=== PATIENT | male | born 1945 | race Caucasian/White ===

== ENCOUNTER → 2016-07-03 | Outpatient (CLI) | payer MEDICARE, BC | LOC: RAD 09:52 | PROVIDERS: ATTEND Urology | DX: C64.1 Malignant neoplasm of right kidney, except renal pelvis (principal); Z90.5 Acquired absence of kidney | CPT/HCPCS: 76770 ==

== ENCOUNTER → 2017-03-20 | Day surgery (SDC) | payer MEDICARE, BC ==
--- NOTE | 2017-03-20 17:16 | RADIOLOGY REPORT (SQ) ---
EXAM DESCRIPTION: CT LT UPPER EXTREMITY WITH COMPLETED DATE/TIME: 03/20/2017 2:45 pm REASON FOR STUDY: PAIN IN L SHOULDER M25.512 PAIN IN LEFT SHOULDER COMPARISON: None. TECHNIQUE: Axial imaging performed through the leftshoulder with reformatted oblique coronal and obl ique sagittal imaging windowed for bone and soft tissues. All CT scanners at this facility use dose modulation, iterative reconstruction, and/or weight based d osing when appropriate to reduce radiation dose to as low as reasonably achievable (ALARA). [facility]: Dose Right [facility]: CareDose [facility]: Dose Right [facility]: Teradose 4D [facility]: Smart Sarta RADIATION DOSE: Up-to-date CT equipment and radiation dose reduction techniques were employed. CTDIv ol: 23.1 mGy. DLP: 552 mGy-cm. mGy. LIMITATIONS: None. FINDINGS: SOFT TISSUES: No left axillary adenopathy. No supraclavicular adenopathy. BONY ARCHITECTURE: No lytic or blastic lesions. Normal bone density for age. No fractures GLENOHUMERAL JOINT: Mild chondromalacia. No subluxation. No bulky bony spurring ACROMION AND AC JOINT: Type 2 acromion with mild to moderate acromioclavicular joint bony spurring. ROTATOR CUFF: Intact. No leakage of contrast into the subacromial/ subdeltoid bursa. Grossly normal thickness GLENOID, LABRUM AND BICEPS: Intact OTHER: There is advanced bilateral foraminal stenosis at the C3-4, C4-5, C5-6, and C6-7 levels from f acet and uncovertebral hypertrophy. IMPRESSION: Cervical neural foraminal stenosis. Mild to moderate acromioclavicular joint bony spurring Mild glenohumeral joint chondromalacia. TECHNICAL DOCUMENTATION: JOB ID: [id number] Quality ID # 436: Final reports with documentation of one or more dose reduction techniques (e.g., Au tomated exposure control, adjustment of the mA and/or kV according to patient size, use of iterative reconstruction technique) 2010 [employer]- All Rights Reserved
--- NOTE | 2017-03-20 17:18 | RADIOLOGY REPORT (SQ) ---
EXAM DESCRIPTION: ARTHRO SHOULDER INJECTION; FLUORO/NEEDLE PLACEMENT COMPLETED DATE/TIME: 03/20/2017 2:46 pm REASON FOR STUDY: PAIN IN L SHOULDER M25.512 PAIN IN LEFT SHOULDER COMPARISON: None. FLUOROSCOPY TIME: 26 seconds 2 digital radiographic images saved to PACS. LIMITATIONS: None. PROCEDURE: Procedure, risks, benefits and alternatives explained to patient who then gave written co nsent. The posterior left shoulder was marked and a time out was called for correct procedure verific ation. Posterior entry site marked using fluoroscopic guidance. Shoulder prepped and draped using s terile technique. Local anesthesia achieved using 6 mL of 1% lidocaine injection. 22 gauge spinal n eedle introduced into the joint space under direct fluoroscopic visualization. Non-ionic contrast ins tilled to confirm intra-articular position. Dilute gadolinium solution then injected. Needle removed and entry site covered with sterile bandage. No immediate complications noted. TECHNIQUE: Digital images acquired during fluoroscopy and stored on PACS. Patient immediately take n to the MR suite for additional imaging. INJECTION LOCATION: Left posterior glenohumeral joint CONTRAST TYPE AND AMOUNT: 1 mL of Isovue 300 was injected to confirm intra-articular needle placement . This was followed with 10 mL of dilute Isovue-[address] shoulder arthrogram. IMPRESSION: SUCCESSFUL NEEDLE PLACEMENT AND INJECTION FOR LEFT SHOULDER MR ARTHROGRAM USING POSTERIO R APPROACH. COMMENT: Quality ID 145: Final reports for procedures using fluoroscopy that document radiation exp osure indices, or exposure time and number of fluorographic images (if radiation exposure indices are not available) TECHNICAL DOCUMENTATION: JOB ID: [id number] [employer]- All Rights Reserved
== END ==
LOC: RAD 13:53
PROVIDERS: ATTEND Orthopaedic Surgery
PROC: BP09ZZZ Plain Radiography of Left Shoulder (ICD-10-PCS; principal; 2017-03-20)
DX: M25.512 Pain in left shoulder (principal)
CPT/HCPCS: 23350; 77002

== ENCOUNTER → 2017-05-07 | Outpatient (CLI) | payer MEDICARE, BC ==
--- NOTE | 2017-05-07 14:28 | RADIOLOGY REPORT (SQ) ---
EXAM DESCRIPTION: CT CERVICAL SPINE WITHOUT COMPLETED DATE/TIME: 05/07/2017 2:11 pm REASON FOR STUDY: M54.2 CERVICALGIA M54.2 CERVICALGIA COMPARISON: None. TECHNIQUE: Axial images acquired through the cervical spine without intravenous contrast. Images re viewed with lung, soft tissue and bone windows. Reconstructed coronal and sagittal MPR images review ed. Images stored on PACS. All CT scanners at this facility use dose modulation, iterative reconstruction, and/or weight based d osing when appropriate to reduce radiation dose to as low as reasonably achievable (ALARA). [facility]: Dose Right [facility]: CareDose [facility]: Dose Right [facility]: Teradose 4D [facility]: Smart mydala RADIATION DOSE: CT Rad equipment meets quality standard of care and radiation dose reduction techniq ues were employed. CTDIvol: 24.2 mGy. DLP: 620 mGy-cm. mGy. LIMITATIONS: None. FINDINGS: ALIGNMENT: Anatomic. MINERALIZATION: Normal. VERTEBRAL BODIES: No fractures or dislocation. DISCS: Disc spaces are fairly well maintained. There are anterior osteophytes from C3 to C5. FACETS, LATERAL MASSES, POSTERIOR ELEMENTS: Multilevel hypertrophic facet changes are present. These are perhaps slightly more advanced on the left than the right. There is narrowing of multiple neura l foramina bilaterally. HARDWARE: None in the spine. VISUALIZED RIBS: No fractures. LUNG APICES AND SOFT TISSUES: No significant or acute findings. OTHER: No other significant finding. IMPRESSION: Degenerative disc disease. Spondylosis. Multilevel facet arthropathy with foraminal na rrowing bilaterally at multiple levels. TECHNICAL DOCUMENTATION: JOB ID: [id number] Quality ID # 436: Final reports with documentation of one or more dose reduction techniques (e.g., Au tomated exposure control, adjustment of the mA and/or kV according to patient size, use of iterative reconstruction technique) 2010 [employer]- All Rights Reserved
== END ==
LOC: RAD 14:00
PROVIDERS: ATTEND Physician Assistant
DX: M54.2 Cervicalgia (principal)
CPT/HCPCS: 72125

== ENCOUNTER → 2017-06-05 | Day surgery (SDC) | payer MEDICARE, BC ==
[~2017-06-05] MED LIST: LIDOCAINE 1% INJ-PF (10 MG/ML) 30 ML SDV ONE
[2017-06-05 08:51] LABS: PROTHROMBIN TIME 12.8 SEC (11.4-15.4)
[2017-06-05 08:52] LABS: PARTIAL THROMBOPLASTIN TIME 35.1 SEC (23.5-35.8)
--- NOTE | 2017-06-05 11:37 | RADIOLOGY REPORT (SQ) ---
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 FLUOROSCOPY TIME: 2.53 minutes. 9 images saved to PACS. TECHNIQUE: Fluoroscopic guided cervical myelogram. LIMITATIONS: None. PROCEDURE: After written consent and assessment were obtained, the patient was brought into the fluo roscopy room and placed prone on the table. The patient's lower back was prepped in a sterile fashio n and an entry site was selected under live fluoroscopic guidance. The entry site was anesthetized wi th 1% lidocaine. The spinal needle was advanced through the skin and into the thecal sac at the leve l of L3-L4. There was free flow of clear CSF at the time of puncture. Contrast was injected into th e thecal sac. Due to previous extensive surgery and metallic hardware, the appearance of the contras t column on fluoroscopic images was somewhat distorted. A cross-table lateral image was acquired wit h the needle in place and the appearance was suggestive of presence of contrast in the thecal sac. F ollowing the procedure the needle was removed and a sterile bandage was placed of the site. The shaheed ent was repositioned in 80 head down ankle to without contrast flow into the cervical region. There was no progression of contrast with this maneuver. CONTRAST: 11 mL Isovue-300. IMAGES ACQUIRED: 9 images. FINDINGS: See above discussion. IMPRESSION: CERVICAL MYELOGRAM PERFORMED FOR CT MYELOGRAPHY. SUBSEQUENT IMAGING DEMONSTRATED NO CON TRAST IN THE CERVICAL REGION. DUE TO THE SURGICAL CHANGES AND HARDWARE IN THE LUMBAR REGION, THE CON TRAST INJECTION HAD A DISTORTED APPEARANCE BUT APPEARED TO BE WITHIN THE THECAL SAC BUT PRESUMABLY WA S IN THE EPIDURAL SPACE INSTEAD. THE PATIENT WILL BE RESCHEDULED FOR REPEAT PROCEDURE. COMMENT: Patient medication list reviewed: Yes- Quality ID# [id number]:Eligible professional attests to doc umenting in the medical record they obtained, updated, or reviewed the patient's current medications. . Quality ID 145: Final reports for procedures using fluoroscopy that document radiation exposure michael pierce, or exposure time and number of fluorographic images (if radiation exposure indices are not avail able) TECHNICAL DOCUMENTATION: JOB ID: [id number] [employer]- All Rights Reserved
--- NOTE | 2017-06-05 11:40 | RADIOLOGY REPORT (SQ) ---
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 TECHNIQUE: Axial images acquired through the cervical spine following attempted cervical myelogram. Please refer to the separate report for discussion of the myelogram procedure. No contrast was pres ent in the thecal sac. Images reviewed with lung, soft tissue and bone windows. Reconstructed coron al and sagittal MPR images reviewed. Images stored on PACS. All CT scanners at this facility use dose modulation, iterative reconstruction, and/or weight based d osing when appropriate to reduce radiation dose to as low as reasonably achievable (ALARA). [facility]: Dose Right [facility]: CareDose [facility]: Dose Right [facility]: Teradose 4D [facility]: [employer] RADIATION DOSE: CT Rad equipment meets quality standard of care and radiation dose reduction techniq ues were employed. CTDIvol: 25.7 mGy. DLP: 653 mGy-cm. mGy. LIMITATIONS: None. FINDINGS: ALIGNMENT: Anatomic. MINERALIZATION: Normal. VERTEBRAL BODIES: No fractures or dislocation. DISCS: Multilevel disc space narrowing with osteophytes. Multilevel spinal stenosis and exit foramin al stenosis. FACETS, LATERAL MASSES, POSTERIOR ELEMENTS: Multilevel facet arthropathy. No fractures. No dislocat ion. No acute findings. HARDWARE: None in the spine. VISUALIZED RIBS: No fractures. LUNG APICES AND SOFT TISSUES: No significant or acute findings. OTHER: No other significant finding. IMPRESSION: MULTILEVEL CHRONIC DEGENERATIVE CHANGES. DUE TO TECHNICAL DIFFICULTIES DISCUSSED IN THE SEPARATE REPORT OF THE MYELOGRAM, THE MYELOGRAPHIC CONTRAST DID NOT FILL THE THECAL SAC AND PRESUMAB LY ENTER THE EPIDURAL SPACE INSTEAD. THE PATIENT WILL BE RESCHEDULED FOR REPEAT CERVICAL MYELOGRAM W ITH FOLLOW-UP CT. TECHNICAL DOCUMENTATION: JOB ID: [id number] Quality ID # 436: Final reports with documentation of one or more dose reduction techniques (e.g., Au tomated exposure control, adjustment of the mA and/or kV according to patient size, use of iterative reconstruction technique) 2010 [employer]- All Rights Reserved
[2017-06-05 11:56] VITALS: BP 159/86
== END ==
LOC: RAD 08:07
PROVIDERS: ATTEND Specialist
PROC: B01BYZZ Fluoroscopy of Spinal Cord using Other Contrast (ICD-10-PCS; principal; 2017-06-05)
DX: M62.81 Muscle weakness (generalized) (principal); M79.602 Pain in left arm; I10 Essential (primary) hypertension; Z79.01 Long term (current) use of anticoagulants; Z79.899 Other long term (current) drug therapy
CPT/HCPCS: 36415; 82947; 85610; 85730; J3490; 72126; 72240

== ENCOUNTER 2017-06-12 07:54 | Day surgery (SDC) | payer MEDICARE, BC ==
[2017-06-12] MEDS ORDERED: LIDOCAINE 1% INJ-PF (10 MG/ML) 30 ML SDV ONE (09:11)
[2017-06-12] MEDS ORDERED: ACETAMINOPHEN 325 MG TABLET ONE (12:36)
--- NOTE | 2017-06-12 12:39 | RADIOLOGY REPORT (SQ) ---
EXAM DESCRIPTION: CT CERVICAL SPINE WITH COMPLETED DATE/TIME: 06/12/2017 10:54 am REASON FOR STUDY: LEFT ARM WEAKNESS M62.81 MUSCLE WEAKNESS (GENERALIZED) COMPARISON: None. TECHNIQUE: After performing cervical myelogram, axial images were acquired through the cervical spin e without intravenous contrast. Images reviewed with lung, soft tissue and bone windows. Reconstruc tonia coronal and sagittal MPR images reviewed. Images stored on PACS. All CT scanners at this facility use dose modulation, iterative reconstruction, and/or weight based d osing when appropriate to reduce radiation dose to as low as reasonably achievable (ALARA). [facility]: Dose Right [facility]: CareDose [facility]: Dose Right [facility]: Teradose 4D [facility]: [employer] RADIATION DOSE: CT Rad equipment meets quality standard of care and radiation dose reduction techniq ues were employed. CTDIvol: 23.5 mGy. DLP: 532 mGy-cm. mGy. LIMITATIONS: None. FINDINGS: ALIGNMENT: Anatomic. MINERALIZATION: Normal. VERTEBRAL BODIES: No fractures or dislocation. DISCS: C1-C2: No significant spinal stenosis or exit foraminal stenosis. C2-C3: Minimal posterior disc and osteophyte. Moderate facet arthropathy, worse on the right. No si gnificant spinal stenosis. Mild to moderate right exit foraminal stenosis. C3-C4: Minimal posterior disc and osteophyte. Marked bilateral facet arthropathy. No significant sp inal stenosis. Moderate to severe bilateral exit foraminal stenosis. C4-C5: Mild posterior disc and osteophyte with right paracentral component. Marked facet arthropathy , worse on the right. Mild spinal stenosis and moderate bilateral exit foraminal stenosis. C5-C6: Mild posterior disc and osteophyte with small focal central component. Mild-moderate spinal s tenosis and borderline focal central impingement of the cord. Marked facet arthropathy. Moderate ex it foraminal stenosis. C6-C7: Mild posterior disc and osteophyte. Mild spinal stenosis. Moderate facet arthropathy with mo derate exit foraminal stenosis. C7-T1: No significant disc disease. Mild facet arthropathy. No significant spinal stenosis or exit foraminal stenosis. FACETS, LATERAL MASSES, POSTERIOR ELEMENTS: No fractures. No dislocation. No acute findings. VISUALIZED RIBS: No fractures. LUNG APICES AND SOFT TISSUES: No significant or acute findings. OTHER: No other significant finding. IMPRESSION: MULTILEVEL CHRONIC DEGENERATIVE CHANGES DESCRIBED. THE MOST PROMINENT FINDINGS ARE D UE PRIMARILY TO FACET ARTHROPATHY. COMMENT: Patient medication list reviewed: Yes- Quality ID# 130:Eligible professional attests to doc umenting in the medical record they obtained, updated, or reviewed the patient's current medications. TECHNICAL DOCUMENTATION: JOB ID: [id number] Quality ID # 436: Final reports with documentation of one or more dose reduction techniques (e.g., Au tomated exposure control, adjustment of the mA and/or kV according to patient size, use of iterative reconstruction technique) 2010 [employer]- All Rights Reserved
--- NOTE | 2017-06-12 12:43 | RADIOLOGY REPORT (SQ) ---
EXAM DESCRIPTION: MYELOGRAM CERVICAL COMPLETED DATE/TIME: 06/12/2017 10:45 am REASON FOR STUDY: LEFT ARM WEAKNESS M62.81 MUSCLE WEAKNESS (GENERALIZED) COMPARISON: None. FLUOROSCOPY TIME: 2 minutes 53 seconds. 18 images saved to PACS. TECHNIQUE: Fluoroscopic guided cervical myelogram. LIMITATIONS: None. PROCEDURE: After written consent and assessment were obtained, the patient was brought into the fluo roscopy room and placed prone on the table. The patient's lower back was prepped in a sterile fashio n and an entry site was selected under live fluoroscopic guidance. The entry site was anesthetized wi th 1% lidocaine. The spinal needle was advanced through the skin and into the thecal sac at the leve l of L4-L5. Contrast was injected into the thecal sac. Following the procedure the needle was remov ed and a sterile bandage was placed of the site. The patient was repositioned to allow movement of c ontrast by gravity to enter the cervical spine region. CONTRAST: 12 mL Isovue 300 M. IMAGES ACQUIRED: 18 images FINDINGS: Contrast is present in the thecal sac. IMPRESSION: CERVICAL MYELOGRAM PERFORMED FOR CT MYELOGRAPHY. PLEASE REFER TO THE REPORT OF THE CT M YELOGRAM FOR DETAILED DIAGNOSTIC EVALUATION. COMMENT: Patient medication list reviewed: Yes- Quality ID# [id number]:Eligible professional attests to doc umenting in the medical record they obtained, updated, or reviewed the patient's current medications. . Quality ID 145: Final reports for procedures using fluoroscopy that document radiation exposure michael pierce, or exposure time and number of fluorographic images (if radiation exposure indices are not avail able) TECHNICAL DOCUMENTATION: JOB ID: [id number] [employer]- All Rights Reserved
[2017-06-12 19:08] VITALS: BP 139/89
== END 2017-06-12 14:15 | disposition home or self-care (01) ==
LOC: RAD 07:54
PROVIDERS: ATTEND Specialist
PROC: B01BYZZ Fluoroscopy of Spinal Cord using Other Contrast (ICD-10-PCS; principal; 2017-06-12)
DX: M54.12 Radiculopathy, cervical region (principal); M62.81 Muscle weakness (generalized); I10 Essential (primary) hypertension
CPT/HCPCS: 82962; 72240; 72126; A9270; J3490

== ENCOUNTER 2017-07-10 09:21 | Emergency (ER) | payer MEDICARE, BC ==
[2017-07-10] MEDS ORDERED: NORMAL SALINE 1000 ML 1,000 ML IV ONE (09:31)
[2017-07-10 09:51] LABS: ABSOLUTE EOSINOPHILS # (AUTO) 0.2 10^3/uL (0.0-0.6); ABSOLUTE LYMPHOCYTES (AUTO) 1.2 10^3/uL (0.5-4.7); ABSOLUTE MONOCYTES (AUTO) 0.6 10^3/uL (0.1-1.4); ABSOLUTE NEUT (AUTO) 6.1 10^3/uL (1.7-8.2); BASOPHILS % (AUTO) 0.3 % (0-2); EOSINOPHILS % (AUTO) 2.7 % (0-6); LYMPHOCYTES % (AUTO) 14.6 % (13-45); MEAN CORPUSCULAR HEMOGLOBIN 31.4 pg (27.0-33.4); MEAN CORPUSCULAR VOLUME 92 fl (80-97); MONOCYTES % (AUTO) 6.9 % (3-13); PLATELET COUNT 171 10^3/uL (150-450); RED BLOOD COUNT 4.13 10^6/uL (4.35-5.55); RED CELL DISTRIBUTION WIDTH 13.5 % (11.5-14.0); SEGMENTED NEUTROPHILS % (AUTO) 75.5 % (42-78); TOTAL CELLS COUNTED % (AUTO) 100 %; WHITE BLOOD COUNT 8.1 10^3/uL (4.0-10.5)
[2017-07-10 10:06] LABS: INTERNATIONAL RATION (INR) 0.96; PROTHROMBIN TIME 13.5 SEC (11.4-15.4)
[2017-07-10 10:10] LABS: ALANINE AMINOTRANSFERASE 44 U/L (21-72); ALBUMIN 3.8 g/dL (3.5-5.0); ALKALINE PHOSPHATASE 53 U/L (38-126); ANION GAP 14 (5-19); ASPARTATE AMINO TRANSFERASE 33 U/L (17-59); BILIRUBIN,DIRECT 0.2 mg/dL (0.0-0.4); BILIRUBIN,TOTAL 0.4 mg/dL (0.2-1.3); BLOOD UREA NITROGEN 53 mg/dL (7-20); CALCIUM 8.7 mg/dL (8.4-10.2); CARBON DIOXIDE 24 mmol/L (22-30); CHLORIDE 104 mmol/L (98-107); GLUCOSE 227 mg/dL (75-110); POTASSIUM 3.4 mmol/L (3.6-5.0); SODIUM 141.8 mmol/L (137-145); TOTAL PROTEIN 6.2 g/dL (6.3-8.2)
--- NOTE | 2017-07-10 10:16 | ER Document Report ---
ED General - General Chief Complaint: General Weakness Stated Complaint: WEAKNESS Time Seen by Provider: 07/10/17 09:30 Notes: 72-year-old male presents with an episode of dizziness and hypotension. He was due for to have a dental procedure so he took his antibiotics sat on the commode got very dizzy and sweaty and felt generally bad. He denies chest pain belly pain back pain leg pain fever chills itchiness wheezing or shortness of breath. No history of anaphylaxis. History of stented aortic aneurysm in the abdomen. He was brought in by EMS. Initial blood pressure was in the 60s. He did not have diarrhea. They did not note bradycardia and his blood sugar was slightly elevated. TRAVEL OUTSIDE OF THE [place] IN LAST 30 DAYS: No - Related Data Allergies/Adverse Reactions: No Known Allergies Allergy (Verified 06/08/17 15:34) Past Medical History - Social History Smoking Status: Unknown if Ever Smoked Family History: CAD - Father, CVA - Mother - Past Medical History Cardiac Medical History: Reports: Hx Coronary Artery Disease, Hx Hypercholesterolemia, Hx Hypertension, Hx Peripheral Vascular Disease - Abdominal aortic aneurysm status post repair Denies: Hx Heart Attack Pulmonary Medical History: Reports: Hx Pneumonia Denies: Hx Asthma, Hx Bronchitis, Hx COPD Neurological Medical History: Denies: Hx Cerebrovascular Accident, Hx Seizures Endocrine Medical History: Reports: Hx Diabetes Mellitus Type 2 Renal/ Medical History: Reports: Hx Benign Prostatic Hyperplasia Malignancy Medical History: Reports Hx Prostate Cancer GI Medical History: Reports: Hx Colonoscopy. Denies: Hx Hepatitis, Hx Hiatal Hernia, Hx Ulcer Musculoskeltal Medical History: Reports Hx Arthritis - GENERALIZED Infectious Medical History: Denies: Hx Hepatitis Past Surgical History: Reports: Hx Kidney (Renal Surgery) - Right Nephrectomy, Hx Orthopedic Surgery - Back surgery Hip surgery, Hx Vascular Surgery - Endovascular sleeve for abdominal aortic aneurysm. Denies: Hx Open Heart Surgery, Hx Pacemaker - Immunizations Hx Diphtheria, Pertussis, Tetanus Vaccination: Yes Review of Systems - Review of Systems Notes: REVIEW OF SYSTEMS GEN: Dizziness and malaise ENT: Denies sore throat, nasal discharge, ear pain EYES: Denies blurry vision, eye pain, discharge CV: Denies chest pain, palpitations, edema RESP: Denies cough, shortness of breath, wheezing GI: Denies abdominal pain, nausea, vomiting, diarrhea MSK: Denies joint pain/swelling, edema, SKIN: Denies rash, skin lesions LYMPH: Denies swollen glands/lymph nodes NEURO: Denies headache, focal weakness or numbness, dizziness PSYCH: Denies depression, suicidal or homicidal ideation PHYSICAL EXAMINATION General: N a pale Head: Atraumatic, normocephalic ENT: Mouth normal, oropharynx moist, no exudates or tonsillar enlargement Eyes: Conjunctiva normal, pupils equal, lids normal Neck: No JVD, supple, no guarding CVS: Normal rate, regular rhythm, no murmurs Resp: No resp distress, equal and normal breath sounds bilaterally GI: Nondistended, soft, no tenderness to palpation, no rebound or guarding Ext: No deformities, no edema, normal range of motion in upper and lower ext Back: No CVA or midline TTP Skin: No rash, warm Lymphatic: No lymphadeopathy noted Neuro: Awake, alert. Face symmetric. GCS 15. Course - Re-evaluation Re-evalutation: 07/10/17 10:14 72-year-old male with history of repaired abdominal aortic aneurysm and diabetes presents with episode of hypertension and clamminess on the commode. Differential includes anaphylaxis although there is no other findings consistent with anaphylaxis on his exam, leaking aortic aneurysm although he has no pain, sepsis although I do not see a source on exam, dehydration or vagal. Sepsis protocol initiated. Bedside FAST exam is negative. Mild aortic dilatation on aortic scan although stent is present so this is unclear. Patient was given IV fluids and his pressure increased to the 110s. His baseline is in the 120s. Spoke with patient's family. Reassessed at 10:15 AM. Pressure still in the 110s and patient feels much better asking for a smith egg and cheese biscuit. His lactic is elevated at 3 but he has no fever so I will not initiate antibiotics at this time. His EKG is normal and his troponin is cooking. I have ordered a CT of his aorta to ensure there is no subtle leaking or Endo leaking. 07/10/17 10:[address] does not show hematoma. This combined with a fast I think adequately ruled out leaking. I would not expect endoleak to cause hypotension. Patient will be hydrated likely will be repeated he will be admitted. Discussed with hospitalist. Urine is still pending. - Laboratory Result Diagrams: 07/10/17 09:35 07/10/17 09:35 Laboratory results interpreted by me: 07/10/17 07/10/17 07/10/17 09:35 09:35 09:35 RBC 4.13 L Hgb 13.0 L Potassium 3.4 L BUN 53 H Creatinine 2.93 H Est GFR ( Amer) 26 L Est GFR (Non-Af Amer) 21 L Glucose 227 H Lactic Acid 3.1 H Total Protein 6.2 L Procedures - Ultrasound/Bedside Ultrasound/Bedside Time completed: 10:20 Notes: 07/10/17 10:51 Ultrasound performed in multiple planes of the aorta. There is slight dilation of the aorta. There is no free fluid surrounding the aorta. There is pulsatile flow within the aorta. Ultrasound performed: Fast. No free fluid in the right upper quadrant left upper quadrant or suprapubic region. Critical Care Note - Critical Care Note Total time excluding time spent on procedures (mins): 40 Comments: The above patient is critically ill. Not including procedures, but including direct re-evaluations, speaking with patient and/or consultants, interpreting results, and documenting, I spent the total amount of minute listed listed above on critical care time Discharge - Discharge Clinical Impression: Dehydration Hypotension Qualifiers: Hypotension type: other hypotension type Qualified Code(s): I95.89 - Other hypotension Condition: Fair Disposition: ADMITTED INPATIENT Admitting Provider: Hospitalist Unit Admitted: IMCU Referrals: ARLENE CHAVEZ MD [Primary Care Provider] - Follow up as needed
[2017-07-10] MEDS ORDERED: ACETAMINOPHEN 325 MG TABLET PO PRN (10:52)
[2017-07-10] MEDS ORDERED: ONDANSETRON HCL INJ/PF 4 MG/2 ML SDV IV PRN (10:52)
[2017-07-10] MEDS ORDERED: NORMAL SALINE 1000 ML 1,000 ML IV PRN (10:52)
--- NOTE | 2017-07-10 11:11 | RADIOLOGY REPORT (SQ) ---
EXAM DESCRIPTION: CT ABD/PELVIS NO ORAL OR IV COMPLETED DATE/TIME: 07/10/2017 10:38 am REASON FOR STUDY: r.o retroperitoneal hematoma (AAA, can't have cont COMPARISON: September 2014 TECHNIQUE: CT scan of the abdomen and pelvis performed without intravenous or oral contrast. Images reviewed with lung, soft tissue, and bone windows. Reconstructed coronal and sagittal MPR images revi ewed. All images stored on PACS. All CT scanners at this facility use dose modulation, iterative reconstruction, and/or weight based d osing when appropriate to reduce radiation dose to as low as reasonably achievable (ALARA). [facility]: Dose Right [facility]: CareDose [facility]: Dose Right [facility]: Teradose 4D [facility]: EpiVax RADIATION DOSE: CT Rad equipment meets quality standard of care and radiation dose reduction techniq ues were employed. CTDIvol: 16.3 mGy. DLP: 956 mGy-cm.mGy. LIMITATIONS: Study is limited due to artifact related to orthopedic hardware in the lumbar spine and a right hip prosthesis. FINDINGS: LOWER CHEST: There is some mild thickening of the pericardium suggesting a small pericardi al effusion. No nodules or infiltrates. NON-CONTRASTED LIVER, SPLEEN, ADRENALS: Evaluation limited by lack of IV contrast. No identified sign ificant masses. PANCREAS: No masses. No peripancreatic inflammatory changes. GALLBLADDER: No identified stones by CT criteria. No inflammatory changes to suggest cholecystitis. RIGHT KIDNEY AND URETER: Status post right nephrectomy. LEFT KIDNEY AND URETER: No suspicious masses. Assessment limited by lack of IV contrast. No signifi cant calcifications. No hydronephrosis or hydroureter. AORTA AND RETROPERITONEUM: Again the patient is status post endovascular repair of an abdominal aorti c and bilateral common iliac artery aneurysms. There is increased diameter between the graft and wal l of the tribe aneurysm at the level of the mid abdominal aorta measuring 14.5 mm on the current gabby dy and 5.4 mm on the previous study and the possibility of an endovascular leak should be considered. This is best seen on image number 49 of series 3. No retroperitoneal masses or adenopathy. BOWEL AND PERITONEAL CAVITY: No obvious masses or inflammatory changes. No free fluid. APPENDIX: Normal. PELVIS, BLADDER, AND ABDOMINAL WALL:No abnormal masses. No free fluid. Bladder normal. BONES: Degenerative and postsurgical changes are again identified in the lumbar spine OTHER: No other significant finding. IMPRESSION: The patient is status post endovascular repair of an abdominal aortic and bilateral comm on iliac artery aneurysms. There is increased diameter between the graft and wall of the tribe abdo paul aortic aneurysm at the level of the mid abdominal aorta as noted above. The possibility of an endovascular leak should be considered. No retroperitoneal bleed is identified. Other findings as n oted above COMMENT: Quality ID # [id number]: Final reports with documentation of one or more dose reduction techniques (e.g., Automated exposure control, adjustment of the mA and/or kV according to patient size, use of iterative reconstruction technique) TECHNICAL DOCUMENTATION: JOB ID: [id number] [employer]- All Rights Reserved
--- NOTE | 2017-07-10 11:36 | RADIOLOGY REPORT (SQ) ---
EXAM DESCRIPTION: CHEST SINGLE VIEW COMPLETED DATE/TIME: 07/10/2017 10:52 am REASON FOR STUDY: hypotension r/o PNA COMPARISON: 04/04/2015. EXAM PARAMETERS: NUMBER OF VIEWS: One view. TECHNIQUE: Single frontal radiographic view of the chest acquired. RADIATION DOSE: NA LIMITATIONS: None. FINDINGS: LUNGS AND PLEURA: No opacities, masses or pneumothorax. No pleural effusion. MEDIASTINUM AND HILAR STRUCTURES: No masses. Contour normal. HEART AND VASCULAR STRUCTURES: Heart normal in size. Normal vasculature. BONES: Old healed left rib fractures. Dorsal spondylosis. Degenerative changes AC joints. HARDWARE: None in the chest. OTHER: Chest leads in place. Nasal oxygen tubing over lower left chest. Radiopaque line overlying t he left axilla. Possibility of a subclavian venous access line not excluded. IMPRESSION: No acute disease. TECHNICAL DOCUMENTATION: JOB ID: [id number] SC-69 [id number] [employer]- All Rights Reserved
[2017-07-10 11:58] LABS: VENOUS BLOOD BASE EXCESS -3.3 mmol/L; VENOUS BLOOD HCO3 23.3 mmol/L (20-32); VENOUS BLOOD PCO2 47.9 mmHg (35-63); VENOUS BLOOD PH 7.31 (7.30-7.42)
--- NOTE | 2017-07-10 13:01 | EKG REPORT ---
SEVERITY:- ABNORMAL ECG - SINUS RHYTHM LEFT ANTERIOR FASCICULAR BLOCK CONSIDER ANTERIOR INFARCT : Confirmed by: Colin Mederos MD 10-Jul-2017 13:00:36
[2017-07-10] MEDS ORDERED: HEPARIN SOD (PORCINE) 5,000 UNIT/ML 1 ML SYRINGE SUBCUT SCH (14:00)
[2017-07-10 14:41] VITALS: BP 153/92
== END 2017-07-10 14:54 | disposition short-term general hospital (02) ==
LOC: ER 09:21 → EH 11:01 → UNDOADMIN 11:01 → ER 14:54
DX: I95.89 Other hypotension (principal); E86.0 Dehydration; R53.1 Weakness; R42 Dizziness and giddiness
CPT/HCPCS: 93005; 99291; 96360; 36415; 87040; 85025; 85610; 80053; 84484; 82803; 83605; 71045; 74176; 93010; J7030

== ENCOUNTER 2017-07-24 05:35 | Day surgery (SDC) | payer MEDICARE, BC ==
[2017-07-17 12:22] LABS: PARTIAL THROMBOPLASTIN TIME 32.4 SEC (23.5-35.8); PROTHROMBIN TIME 12.8 SEC (11.4-15.4)
[2017-07-17 12:23] LABS: HEMATOCRIT 37.5 % (37.9-51.0); HEMOGLOBIN 13.1 g/dL (13.5-17.0); MEAN CORPUSCULAR HEMOGLOBIN 31.7 pg (27.0-33.4); MEAN CORPUSCULAR HGB CONC 34.9 g/dL (32.0-36.0); MEAN CORPUSCULAR VOLUME 91 fl (80-97); PLATELET COUNT 232 10^3/uL (150-450); RED BLOOD COUNT 4.12 10^6/uL (4.35-5.55); RED CELL DISTRIBUTION WIDTH 13.4 % (11.5-14.0); WHITE BLOOD COUNT 8.9 10^3/uL (4.0-10.5)
[2017-07-17 12:49] LABS: ANION GAP 14 (5-19); BLOOD UREA NITROGEN 50 mg/dL (7-20); CALCIUM 9.6 mg/dL (8.4-10.2); CARBON DIOXIDE 26 mmol/L (22-30); CHLORIDE 102 mmol/L (98-107); GLUCOSE 95 mg/dL (75-110); SODIUM 142.4 mmol/L (137-145)
--- NOTE | 2017-07-17 22:47 | EKG REPORT ---
SEVERITY:- ABNORMAL ECG - SINUS RHYTHM LEFT ANTERIOR FASCICULAR BLOCK BORDERLINE R WAVE PROGRESSION, ANTERIOR LEADS : Confirmed by: Tai Love 17-Jul-2017 22:45:34
[~2017-07-24 05:35] MED LIST changes: +CEFAZOLIN 1 GM/D5W RTU 1 GM/50 ML RTUPB IV PRN; +LACTATED RINGERS 1000 ML IV PRN; +LIDOCAINE 0.5% INJ-PF (5 MG/ML) 50 ML SDV SUBCUT PRN; -LIDOCAINE 1% INJ-PF (10 MG/ML) 30 ML SDV ONE
[2017-07-24 06:28] LABS: POTASSIUM 3.9 mmol/L (3.6-5.0)
[2017-07-24] MEDS ORDERED: POVIDONE-IODINE 5% OPH PREP SOLN 30 ML ONE (06:32)
[2017-07-24] MEDS ORDERED: SODIUM BICARBONATE 8.4% INJ 50 MEQ/50 ML DISP.SYRIN ONE (06:32)
[2017-07-24] MEDS ORDERED: LIDOCAINE 1%/EPINEPHRINE INJ 20 ML VIAL ONE (06:32)
[2017-07-24] MEDS ORDERED: FENTANYL CITRATE INJ/PF 100 MCG/2 ML AMPUL ONE (06:51)
[2017-07-24] MEDS ORDERED: MIDAZOLAM 2 MG/2 ML INJ ONE (06:51)
[2017-07-24] MEDS ORDERED: LIDOCAINE 2% INJ-PF (20 MG/ML) 10 ML AMPUL ONE (06:51)
[2017-07-24] MEDS ORDERED: PROPOFOL INJ 200 MG/20 ML VIAL IV ONE (06:52)
[2017-07-24] MEDS ORDERED: PROMETHAZINE HCL INJ 25 MG/1 ML VIAL IV PRN (08:08)
[2017-07-24] MEDS ORDERED: DIPHENHYDRAMINE HCL 50 MG/ML VIAL IV PRN (08:08)
[2017-07-24] MEDS ORDERED: FENTANYL CITRATE INJ/PF 100 MCG/2 ML AMPUL IV PRN ×3 (08:08)
--- NOTE | 2017-07-24 09:06 | Operative Report ---
Operative Report DATE OF SURGERY: 07/24/17 PREOPERATIVE DIAGNOSIS: Basal cell carcinoma of the left nasolabial fold POSTOPERATIVE DIAGNOSIS: Same OPERATION: Excision of basal cell carcinoma of the left nasolabial fold with frozen section margin control and reconstruction with a cheek sliding advancement flap SURGEON: VALENTIN DENIS ANESTHESIA: LMAC TISSUE REMOVED OR ALTERED: Basal cell carcinoma COMPLICATIONS: None ESTIMATED BLOOD LOSS: Minimal PROCEDURE: Patient seen and was marked prior to being brought into the operating room. Patient was brought into the operating room and placed on the operating room table in a supine position. Patient was then prepped with a Betadine scrub and Betadine solution and draped in a sterile and aseptic manner. The area was then marked. 12 O'clock was marked towards the alar groove 3 O'clock was marked towards the cheek 6:00 was marked towards the inferior cheek 9:00 was marked towards the central lip The area was then anesthetized with 1% lidocaine with epinephrine and bicarbonate for its anesthetic and hemostatic effects. The area was then excised and marked at 12:00. The specimen was sent for frozen section. The results came back that the deep and lateral margins were free. We had considered a primary closure but this would go against the natural relaxed skin tension lines. A primary closure would be too tight and would have increased chance of dehiscence. This will leave more of a scar so we decided to use a cheek sliding advancement flap reconstruction which would camouflage the scar better and take tension off of the closure so that would be less chances of complications. This flap that we decided to use would camouflage the scar in the nasolabial fold and lip and would distort the lower eyelid the least amount. Patient has a very weak lower eyelid and closure options that would not affect the lower eyelid were important and the decision for the reconstruction. Then we went ahead and outlined the flap and anesthetized it. Then incised the flap and developed a flap maintaining the subdermal plexus. Then we undermined 360 to allow for plate like scarring and minimize trap door deformity. Throughout the case hemostasis was achieved with the bipolar. We then sutured the flap into its new position using 5-0 Vicryl for the subcutaneous and deep dermis. Skin was closed with a running subcuticular suture stitch using 4-0 PDS with knots being tied on the outside. And 4-0 PDS suture was used for support and placed in the central area of the incision. We then applied tincture benzoin and Steri-Strips followed by a light pressure dressing. Patient was then reversed from anesthesia and taken to the [facility] for recovery. The patient tolerated well. There were no complications. Lesion size was approximately 1.5 x 1 cm please see pathology for actual size. Portions of this note may be dictated using [employer] voice recognition software. Occasional variations and spelling and vocabulary could be possible and are unintentional. Additionally, there is a chance that some errors may not be caught or corrected. Please notify the author of any discrepancies noted or if any statements are unclear. Subjective: No complaints Objective: Vital signs stable afebrile No bleeding Dressing intact Assessment and plan: Doing well. Elevate the operative site. Resume medications. Take antibiotics for 1 day Follow-up Full instructions were given to the patient and family and they understand Portions of this note may be dictated using [employer] voice recognition software. Occasional variations and spelling and vocabulary could be possible and are unintentional. Additionally, there is a chance that some errors may not be caught or corrected. Please notify the offer of any discrepancies noted or if any statements are unclear.
--- NOTE | 2017-07-24 09:08 | PDOC DISCHARGE SUMMARY ---
Discharge Summary (SDC) - Discharge Final Diagnosis: Basal cell carcinoma of the left nasolabial fold Date of Surgery: 07/24/17 Condition: Good Treatment or Instructions: Leave the top dressing on for 2 days, then removed. Leave the steri-strip tapes on for 5 days, then removal. Then cleaning wound with peroxide and apply Neosporin/bacitracin 3 times per day. Antibiotics for 1 day, then discontinue. Elevate operative area to decrease swelling. Do not strain, or lift heavy objects. Call for excessive bleeding, increased temperature of 101, uncontrolled pain, or excessive nausea or vomiting. You may reach Dr. Hernandez through his office at [phone]. In the event of an emergency after hours, then contact Dr. Hernandez through [facility]. Return to the office for a postop check on . The time will be scheduled by the nursing staff of [facility] prior to discharge. Please give the patient a copy of their labs and EKG so they can bring this to their PMD. Thank you Portions of this note may be dictated using [employer] voice recognition software. Occasional variations and spelling and vocabulary could be possible and are unintentional. Additionally, there is a chance that some errors may not be caught or corrected. Please notify the offer of any discrepancies noted or if any statements are unclear. Referrals: ARLENE CHAVEZ MD [Primary Care Provider] - Discharge Diet: As Tolerated Report the Following to Your Physician Immediately: Unusual Bleeding - Keep head elevated. Limited activities. No bending or straining. Do not blow the nose. Do not do any excessive chewing the next several days.
[2017-07-24 10:44] VITALS: BP 162/81
== END 2017-07-24 10:35 | disposition home or self-care (01) ==
LOC: OROUT 05:35
PROVIDERS: ATTEND Plastic Surgery
PROC: 0HB1XZZ Excision of Face Skin, External Approach (ICD-10-PCS; principal; 2017-07-24 07:30)
DX: C44.319 Basal cell carcinoma of skin of other parts of face (principal); I10 Essential (primary) hypertension; M19.90 Unspecified osteoarthritis, unspecified site; Z79.01 Long term (current) use of anticoagulants; Z79.899 Other long term (current) drug therapy
CPT/HCPCS: 14040; 93005; 36415 ×2; 82947; 84132; 85027; 85610; 85730; 80048; 88305 ×2; 88331 ×2; 93010; J2250; J0690; J3010; J3490 ×4; J2704; 300

== ENCOUNTER 2017-10-28 03:58 | Emergency (ER) | payer MEDICARE, BC ==
[2017-10-28 04:08] VITALS: BP 163/84
--- NOTE | 2017-10-28 05:38 | RADIOLOGY REPORT (SQ) ---
EXAM DESCRIPTION: Right foot, 3 views CLINICAL HISTORY: fall right 2nd toe pain COMPARISON: None. FINDINGS: 3 views of the right foot. Leads are calcaneal spur. Normal osseous mineralization. Degenerative change of the first metacarpophalangeal joint. No definite acute fracture or dislocation. IMPRESSION: No acute fracture or dislocation
--- NOTE | 2017-10-28 05:39 | RADIOLOGY REPORT (SQ) ---
EXAM DESCRIPTION: CT of the head without contrast CLINICAL HISTORY: fall head lac COMPARISON: None available TECHNIQUE: Axial CT of the head obtained from the skull apex to the skull base without contrast. FINDINGS: No acute intracranial hemorrhage identified. No mass, mass effect, shift of the midline, abnormal extra-axial fluid collection or CT evidence of acute ischemic change identified. The ventricular system and sulcal spaces are mildly enlarged compatible with mild cerebral atrophy. Scattered areas of hypodensity throughout the supratentorial white matter are nonspecific and may be related to chronic small vessel ischemic change. The visualized paranasal sinuses and the mastoids are clear. No skull fracture identified. Visualized orbits and globes are unremarkable. Atherosclerotic calcification of the intracranial internal carotid arteries. DLP:1096.98 mGy-cm IMPRESSION: 1. No acute intracranial abnormality by CT criteria. This exam was performed according to our departmental dose-optimization program, which includes automated exposure control, adjustment of the mA and/or kV according to patient size and/or use of iterative reconstruction technique.
--- NOTE | 2017-10-28 06:11 | ER Document Report ---
ED General - General Chief Complaint: Head Injury without LOC Stated Complaint: FALL, HEAD INJURY Time Seen by Provider: 10/28/17 05:46 Mode of Arrival: Ambulatory Information source: Patient Notes: Patient is a 72-year-old male who presents to the ER today for head injury after letting the dog out tonight, then sitting on the side of the bed waiting on the dog to scratch at the door so that he could let him back again, falling asleep and falling out of the bed. Patient hit his head on the nightstand and injured his right second toe on something unknown. Patient is up-to-date on his tetanus, bleeding is controlled at this time with bandaging. Patient states that he did not lose consciousness after hitting his head. He denies any pain anywhere else. Patient is not on any blood thinners. TRAVEL OUTSIDE OF THE [place] IN LAST 30 DAYS: No - Related Data Allergies/Adverse Reactions: No Known Allergies Allergy (Verified 07/17/17 10:57) Past Medical History - General Information source: Patient - Social History Smoking Status: Unknown if Ever Smoked Family History: CAD - Father, CVA - Mother Patient has suicidal ideation: No Patient has homicidal ideation: No - Past Medical History Cardiac Medical History: Reports: Hx Coronary Artery Disease, Hx Hypercholesterolemia, Hx Hypertension, Hx Peripheral Vascular Disease - Abdominal aortic aneurysm status post repair Denies: Hx Heart Attack Pulmonary Medical History: Reports: Hx Pneumonia Denies: Hx Asthma, Hx Bronchitis, Hx COPD Neurological Medical History: Denies: Hx Cerebrovascular Accident, Hx Seizures Endocrine Medical History: Reports: Hx Diabetes Mellitus Type 2 Renal/ Medical History: Reports: Hx Benign Prostatic Hyperplasia. Denies: Hx Peritoneal Dialysis Malignancy Medical History: Reports Hx Prostate Cancer GI Medical History: Reports: Hx Colonoscopy. Denies: Hx Hepatitis, Hx Hiatal Hernia, Hx Ulcer Musculoskeltal Medical History: Reports Hx Arthritis - GENERALIZED Infectious Medical History: Denies: Hx Hepatitis Past Surgical History: Reports: Hx Kidney (Renal Surgery) - Right Nephrectomy, Hx Orthopedic Surgery - Back surgery Hip surgery, Hx Vascular Surgery - Endovascular sleeve for abdominal aortic aneurysm. Denies: Hx Open Heart Surgery, Hx Pacemaker - Immunizations Hx Diphtheria, Pertussis, Tetanus Vaccination: Yes Review of Systems - Review of Systems Constitutional: No symptoms reported EENT: No symptoms reported Cardiovascular: No symptoms reported Respiratory: No symptoms reported Gastrointestinal: No symptoms reported Genitourinary: No symptoms reported Male Genitourinary: No symptoms reported Musculoskeletal: See HPI Skin: See HPI Hematologic/Lymphatic: No symptoms reported Neurological/Psychological: See HPI Physical Exam - Vital signs Vitals: Temp Pulse Resp BP Pulse Ox 97.8 F 65 16 163/84 H 95 10/28/17 04:04 10/28/17 04:04 10/28/17 04:04 10/28/17 04:04 10/28/17 04:04 - Notes Notes: PHYSICAL EXAMINATION: GENERAL: Tired appearing, but in no acute distress. HEAD: 6 cm laceration to the right scalp, no active bleeding, normocephalic. EYES: Pupils equal round and reactive to light, extraocular movements intact, sclera anicteric, conjunctiva are normal. NECK: Normal range of motion, supple without lymphadenopathy LUNGS: CTAB and equal. No wheezes rales or rhonchi. HEART: Regular rate and rhythm without murmurs ABDOMEN: Soft, no tenderness. No guarding, no rebound BACK: no vertebral tenderness, normal ROM GI/: no CVA tenderness EXTREMITIES: Normal range of motion, no pitting edema. No cyanosis. NEUROLOGICAL: Cranial nerves grossly intact. Normal sensory/motor exams. Good and equal strength bilaterally, Kernig and Brudzinski's signs negative, Romberg' s test normal, normal heel to lund testing PSYCH: Normal mood, normal affect. SKIN: Warm, Dry, normal turgor, ecchymosis to the right dorsal second toe, tender to palpation, 1 cm laceration to the plantar surface of the right second toe, no active bleeding, tendon visible but intact Course - Re-evaluation Re-evalutation: 10/28/17 07:44 CT of the head, right foot x-ray negative for any acute pathology. Head laceration was repaired with lluvia, 4, total laceration was repaired with Steri-Strips, bandaged and patient placed on Keflex. Patient was up-to-date on his tetanus. Patient to follow-up with his primary care provider for recheck as he is a diabetic with neuropathy. advised to look at the foot daily. They are advised to be seen in 7 days to have lluvia removed. 10/28/17 19:45 - Vital Signs Vital signs: Temp Pulse Resp BP Pulse Ox 97.8 F 65 16 163/84 H 95 10/28/17 04:04 10/28/17 04:04 10/28/17 04:04 10/28/17 04:04 10/28/17 04:04 Procedures - Laceration/Wound Repair Right Toe 2nd digit Time completed: 07:00 Wound length (cm): 1 Wound's Depth, Shape: Linear Laceration pre-procedure: Shur-Clens applied Wound explored: Clean Irrigated w/ Saline (mLs): 40 Wound Repaired With: Steri-strips Post-procedure wound care: Sterile dressing applied Post-procedure NV exam normal: Yes Complications: No Right Head Time completed: 07:00 Wound length (cm): 6 Wound's Depth, Shape: Superficial, Linear - Are Laceration pre-procedure: Chloraprep applied - Gladys Wound explored: Clean - date of 01/19/1966 Wound Repaired With: Lluvia - 4 Post-procedure NV exam normal: Yes Complications: No Discharge - Discharge Clinical Impression: Scalp laceration Qualifiers: Encounter type: initial encounter Qualified Code(s): S01.01XA - Laceration without foreign body of scalp, initial encounter Head injury Qualifiers: Encounter type: initial encounter Qualified Code(s): S09.90XA - Unspecified injury of head, initial encounter Injury of right toe Qualifiers: Encounter type: initial encounter Qualified Code(s): S99.921A - Unspecified injury of right foot, initial encounter Toe laceration Qualifiers: Encounter type: initial encounter Toe: lesser toe Damage to nail status: without damage Foreign body presence: without foreign body Laterality: right Qualified Code(s): S91.114A - Laceration without foreign body of right lesser toe(s) without damage to nail, initial encounter Condition: Stable Disposition: HOME, SELF-CARE Instructions: Care of Stapled Wounds ([facility]) Additional Instructions: Please be seen in 7 days for staple removal return immediately for any new or worsening symptoms. Follow up with primary care provider, call tomorrow to make followup appointment. Prescriptions: Cephalexin Monohydrate [Keflex 500 mg Capsule] 500 mg PO BID 5 Days capsule Referrals: ARLENE CHAVEZ MD [Primary Care Provider] - Follow up as needed
== END 2017-10-28 06:57 | disposition home or self-care (01) ==
LOC: ER 03:58
PROC: 0HQ0XZZ Repair Scalp Skin, External Approach (ICD-10-PCS; principal; 2017-10-28)
PROC: 0HQMXZZ Repair Right Foot Skin, External Approach (ICD-10-PCS; 2017-10-28)
DX: S01.01XA Laceration without foreign body of scalp, initial encounter (principal); S91.114A Laceration without foreign body of right lesser toe(s) without damage to nail, initial encounter; S99.921A Unspecified injury of right foot, initial encounter; S09.90XA Unspecified injury of head, initial encounter; W06.XXXA Fall from bed, initial encounter; I25.10 Atherosclerotic heart disease of native coronary artery without angina pectoris; I10 Essential (primary) hypertension; E11.9 Type 2 diabetes mellitus without complications
CPT/HCPCS: 70450; 99284

== ENCOUNTER → 2017-12-07 | Outpatient (CLI) | payer MEDICARE, BC ==
--- NOTE | 2017-12-07 09:20 | RADIOLOGY REPORT (SQ) ---
EXAM DESCRIPTION: CERV SP 3 VIEW OR LESS COMPLETED DATE/TIME: 12/07/2017 8:59 am REASON FOR STUDY: RADICULOPATHY, CERVICAL REGION M54.12 RADICULOPATHY, CERVICAL REGION COMPARISON: CT cervical spine post myelogram, 06/05/2017, 06/12/2017 NUMBER OF VIEWS: Three views. TECHNIQUE: AP, lateral and odontoid radiographic images acquired of the cervical spine. LIMITATIONS: None. FINDINGS: MINERALIZATION: Normal. ALIGNMENT: Minimal fixed anterolisthesis of C 3 over C4, and C4 over C5. No instability on flexion/ extension. VERTEBRAE: Vertebral bodies of normal height. DISCS: No disc space loss of height. Diffuse anterior osteophytes. Diffuse facet arthropathy. Post bilateral laminectomy at C4, C5 and C6. HARDWARE: None in the spine. SOFT TISSUES: No masses or calcifications. Lung apices clear. OTHER: No other significant finding. IMPRESSION: Post wide dorsal decompression from C4 through C6. No instability on flexion/extension. TECHNICAL DOCUMENTATION: JOB ID: [id number] [employer]- All Rights Reserved Reading location - IP/workstation name: [facility]
== END ==
LOC: RAD 08:29
PROVIDERS: ATTEND Specialist
DX: M54.12 Radiculopathy, cervical region (principal)
CPT/HCPCS: 72040

== ENCOUNTER 2018-03-19 07:59 | Day surgery (SDC) | payer MEDICARE, BC ==
[2018-03-08 13:13] LABS: HEMATOCRIT 35.8 % (37.9-51.0); HEMOGLOBIN 12.4 g/dL (13.5-17.0); MEAN CORPUSCULAR HEMOGLOBIN 31.3 pg (27.0-33.4); MEAN CORPUSCULAR HGB CONC 34.5 g/dL (32.0-36.0); MEAN CORPUSCULAR VOLUME 91 fl (80-97); PLATELET COUNT 178 10^3/uL (150-450); RED BLOOD COUNT 3.95 10^6/uL (4.35-5.55); RED CELL DISTRIBUTION WIDTH 14.3 % (11.5-14.0); WHITE BLOOD COUNT 8.1 10^3/uL (4.0-10.5)
[2018-03-08 13:21] LABS: INTERNATIONAL RATION (INR) 0.89; PARTIAL THROMBOPLASTIN TIME 28.3 SEC (23.5-35.8); PROTHROMBIN TIME 12.5 SEC (11.4-15.4)
[2018-03-08 13:42] LABS: ANION GAP 12 (5-19); BLOOD UREA NITROGEN 56 mg/dL (7-20); CARBON DIOXIDE 24 mmol/L (22-30); CHLORIDE 107 mmol/L (98-107); GLUCOSE 95 mg/dL (75-110); POTASSIUM 4.6 mmol/L (3.6-5.0); SODIUM 142.7 mmol/L (137-145)
--- NOTE | 2018-03-08 20:57 | EKG REPORT ---
SEVERITY:- ABNORMAL ECG - SINUS RHYTHM FIRST DEGREE AV BLOCK LEFT ANTERIOR FASCICULAR BLOCK : Confirmed by: Ronit Acosta MD 08-Mar-2018 20:56:08
[~2018-03-19 07:59] MED LIST changes: +CEFAZOLIN 1 GM/D5W RTU 1 GM/50 ML RTUPB IV ONE
[2018-03-19] MEDS ORDERED: LIDOCAINE 1%/EPINEPHRINE INJ 20 ML VIAL ONE (08:03)
[2018-03-19] MEDS ORDERED: SODIUM BICARBONATE 8.4% INJ 50 MEQ/50 ML DISP.SYRIN ONE (08:03)
[2018-03-19 09:06] LABS: POTASSIUM 4.4 mmol/L (3.6-5.0)
[2018-03-19] MEDS ORDERED: MIDAZOLAM 2 MG/2 ML INJ ONE ×2 (09:30→10:39)
[2018-03-19] MEDS ORDERED: FENTANYL CITRATE INJ/PF 100 MCG/2 ML AMPUL ONE (09:30)
[2018-03-19] MEDS ORDERED: PROPOFOL INJ 200 MG/20 ML VIAL IV ONE (09:30)
[2018-03-19] MEDS ORDERED: MEPERIDINE HCL/PF INJ 25 MG/1 ML DISP.SYRIN IV PRN (10:11)
[2018-03-19] MEDS ORDERED: DIPHENHYDRAMINE HCL 50 MG/ML VIAL IV PRN (10:11)
[2018-03-19] MEDS ORDERED: PROMETHAZINE HCL INJ 25 MG/1 ML VIAL IV PRN ×2 (10:11)
[2018-03-19] MEDS ORDERED: FENTANYL CITRATE INJ/PF 100 MCG/2 ML AMPUL IV PRN ×3 (10:11)
[2018-03-19] MEDS ORDERED: MORPHINE SULFATE 10 MG/ML INJ IV PRN (10:11)
--- NOTE | 2018-03-19 10:17 | RADIOLOGY REPORT (SQ) ---
EXAM DESCRIPTION: L SPINE 2 VIEWS COMPLETED DATE/TIME: 03/19/2018 9:26 am REASON FOR STUDY: SPINE AP/LAT/FLEX/EXT ONLY C44.619 BASAL CELL CARCINOMA SKIN/ LEFT UPPER LIMB, IN C SHOU Z79.01 [employer]OR (CURRENT) USE OF ANTICOAGULANTS Z79.899 OTHER CARE HOME (CURRENT) DRUG THER APY COMPARISON: 07/10/2017 NUMBER OF VIEWS: Two views. TECHNIQUE: AP and lateral radiographic images acquired of the lumbar spine. LIMITATIONS: None. FINDINGS: There are 5 wib-wzh-chwheak lumbar vertebral bodies. Posterior fusion extending from L2 t o the bilateral sacroiliac joints without evidence of hardware complication. Alignment is stable wit h decreased lumbar lordosis. Multilevel degenerative changes of the lumbar spine with disc height lo ss and osteophytosis. Few cysts at throughout the lower lumbar spine. No evidence of fracture. Partially visualized right hip arthroplasty. Aortoiliac stent graft. IMPRESSION: Posterior fusion hardware spanning from L2 to the bilateral sacroiliac joints without ev idence of complication. No evidence of fracture. TECHNICAL DOCUMENTATION: JOB ID: [id number] [employer]- All Rights Reserved Reading location - IP/workstation name: [facility]
--- NOTE | 2018-03-19 10:19 | RADIOLOGY REPORT (SQ) ---
EXAM DESCRIPTION: L SPINE FLEX/EXT ONLY COMPLETED DATE/TIME: 03/19/2018 9:26 am REASON FOR STUDY: LUMBAR RADICULOPATHY C44.619 BASAL CELL CARCINOMA SKIN/ LEFT UPPER LIMB, INC SHOU Z79.01 SNF (CURRENT) USE OF ANTICOAGULANTS Z79.899 OTHER SNF (CURRENT) DRUG THERAPY COMPARISON: Same day radiograph NUMBER OF VIEWS: Two view. TECHNIQUE: AP and lateral views of the lumbar spine with flexion and extension. LIMITATIONS: None. FINDINGS: Posterior fusion hardware from L2 to the bilateral sacroiliac joints. No evidence of frac ture. Limited mobility without evidence of instability with flexion or extension. Diffuse thoracolu mbar spondylosis with disc height loss throughout the visualized spine and associated osteophytosis. Fused facets of the lower lumbar spine. Stable appearance of the aortoiliac stent graft repair. Remaining regional soft tissues are unremark able. IMPRESSION: Posterior fusion hardware spanning from L2 to the bilateral sacroiliac joints without ev idence of complication. Limited mobility without evidence of instability with flexion or extension. TECHNICAL DOCUMENTATION: JOB ID: [id number] [employer]- All Rights Reserved Reading location - IP/workstation name: [facility]
--- NOTE | 2018-03-19 11:32 | Operative Report ---
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 Patient was brought into the operating room and placed on the operating room table in a supine position. Patient was then prepped with a Betadine scrub and Betadine solution and draped in a sterile and aseptic manner. The area was then marked. 12 O'clock was marked towards antecubital fossa 3 O'clock was marked towards the ulnar side of the forearm 6:00 was marked towards the wrist 9:00 was marked towards the radial side of the forearm The area was then anesthetized with 1% lidocaine with epinephrine and bicarbonate for its anesthetic and hemostatic effects. The area was then excised and marked at 12:00. The specimen was sent for frozen section. The results came back that the deep and lateral margins were free. We had considered a primary closure but this would go against the natural relaxed skin tension lines. A primary closure would be too tight and would have increased chance of dehiscence. This will leave more of a scar so we decided to use a rotation flap reconstruction which would camouflage the scar better and take tension off of the closure so that would be less chances of complications. We decided to go with the rotation flap because this would allow us to try to harvest the skin where there was the most amount of laxity. Then we went ahead and outlined the flap and anesthetized it. We then incised the flap and developed a flap maintaining the subdermal plexus. Then we undermined 360 to allow for plate like scarring and minimize trap door deformity. Throughout the case hemostasis was achieved with the bipolar. We then sutured the flap into its new position using 4-0 Vicryl for the subcutaneous and deep dermis. Skin was closed with a lluvia. We applied Xeroform and 4 x 4's and a loose Srinivas wrap for compression. Patient was then reversed from anesthesia and taken to the [facility] for recovery. The patient tolerated well. There were no complications. Lesion size was approximately 3 x 2.5 cm please see pathology for actual size. Portions of this note may be dictated using Dragon voice recognition software. Occasional variations and spelling and vocabulary could be possible and are unintentional. Additionally, there is a chance that some errors may not be caught or corrected. Please notify the author of any discrepancies noted or if any statements are unclear. Subjective: No complaints Objective: Vital signs stable afebrile No bleeding Dressing intact Assessment and plan: Doing well. Elevate the operative site. Resume medications. Take antibiotics for 1 day Follow-up Full instructions were given to the patient and family and they understand Portions of this note may be dictated using [employer] voice recognition software. Occasional variations and spelling and vocabulary could be possible and are unintentional. Additionally, there is a chance that some errors may not be caught or corrected. Please notify the offer of any discrepancies noted or if any statements are unclear.
--- NOTE | 2018-03-19 11:34 | Discharge Summary ---
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 Then cleaning wound with peroxide and apply Neosporin/bacitracin 3 times per day. Antibiotics for 1 day, then discontinue. Elevate operative area to decrease swelling. Do not strain, or lift heavy objects. Call for excessive bleeding, increased temperature of 101, uncontrolled pain, or excessive nausea or vomiting. You may reach Dr. Hernandez through his office at [phone]. In the event of an emergency after hours, then contact Dr. Hernandez through [facility]. Return to the office for a postop check on . The time will be scheduled by the nursing staff of [facility] prior to discharge. Please give the patient a copy of their labs and EKG so they can bring this to their PMD. Thank you Portions of this note may be dictated using [employer] voice recognition software. Occasional variations and spelling and vocabulary could be possible and are unintentional. Additionally, there is a chance that some errors may not be caught or corrected. Please notify the offer of any discrepancies noted or if any statements are unclear. Referrals: ARLENE CHAVEZ MD [Primary Care Provider] - Discharge Diet: As Tolerated Report the Following to Your Physician Immediately: Unusual Bleeding - Keep arm elevated. Monitor capillary refill in the tips of the finger. If there is any swelling in the fingertips, loosen the Srinivas wrap. If the Srinivas wrap becomes too loose tighten that up.
[2018-03-19 13:47] VITALS: BP 153/86
--- NOTE | 2018-03-19 15:26 | RADIOLOGY REPORT (SQ) ---
EXAM DESCRIPTION: CERV SP 3 VIEW OR LESS COMPLETED DATE/TIME: 03/19/2018 1:18 pm REASON FOR STUDY: CERVICAL RADICULOPATHY C44.619 BASAL CELL CARCINOMA SKIN/ LEFT UPPER LIMB, INC SH OU Z79.01 SYSTEMATIC THEOLOGY PROFESSOR (CURRENT) USE OF ANTICOAGULANTS Z79.899 OTHER SYSTEMATIC THEOLOGY PROFESSOR (CURRENT) DRUG THERAPY COMPARISON: 12/07/2017. NUMBER OF VIEWS: Three view. TECHNIQUE: Lateral views of the cervical spine with flexion and extension. LIMITATIONS: None. FINDINGS: MINERALIZATION: Normal. ALIGNMENT: Stable minimal anterolisthesis of C3 on C4 and C4 on C5. FLEXION/EXTENSION: No instability. VERTEBRAE: Vertebral bodies of normal height. DISCS: Multilevel disc space narrowing with osteophytes. LATERAL AND POSTERIOR ELEMENTS: Laminectomy from C4-C6. HARDWARE: None in the spine. SOFT TISSUES: No masses or calcifications. Lung apices clear. OTHER: No other significant finding. IMPRESSION: STABLE MINIMAL ANTEROLISTHESIS OF C3 ON C4 AND C 4 ON C 5. CHRONIC DEGENERATIVE DISC DI SEASE. PREVIOUS LAMINECTOMY. NO INSTABILITY ON FLEXION/EXTENSION. TECHNICAL DOCUMENTATION: JOB ID: [id number]- All Rights Reserved Reading location - IP/workstation name: [email or web address]
== END 2018-03-19 12:45 | disposition home or self-care (01) ==
LOC: OROUT 07:59
PROVIDERS: ATTEND Plastic Surgery
DX: C44.619 Basal cell carcinoma of skin of left upper limb, including shoulder (principal); L57.0 Actinic keratosis; L57.8 Other skin changes due to chronic exposure to nonionizing radiation; I10 Essential (primary) hypertension; M19.90 Unspecified osteoarthritis, unspecified site; E11.9 Type 2 diabetes mellitus without complications; Z79.4 Long term (current) use of insulin; Z79.899 Other long term (current) drug therapy; Z85.53 Personal history of malignant neoplasm of renal pelvis
CPT/HCPCS: 93005; 36415 ×2; 82962; 82947; 84132; 85027; 85610; 85730; 80048; 88305 ×2; 88331 ×2; 72040; 93010; 14020; J2250; J0690; J3490 ×2; J2704; 400; 72100; 72120; J3010

== ENCOUNTER → 2018-03-29 | Outpatient (CLI) | payer MEDICARE, BC ==
--- NOTE | 2018-03-29 15:58 | RADIOLOGY REPORT (SQ) ---
EXAM DESCRIPTION: CT CERVICAL SPINE WITHOUT COMPLETED DATE/TIME: 03/29/2018 1:52 pm REASON FOR STUDY: CERVICAL RADICULOPATHY (M54.12) M54.12 RADICULOPATHY, CERVICAL REGION COMPARISON: 06/12/2017 TECHNIQUE: Axial images acquired through the cervical spine without intravenous contrast. Images re viewed with lung, soft tissue and bone windows. Reconstructed coronal and sagittal MPR images review ed. Images stored on PACS. All CT scanners at this facility use dose modulation, iterative reconstruction, and/or weight based d osing when appropriate to reduce radiation dose to as low as reasonably achievable (ALARA). [facility]: Dose Right [facility]: CareDose [facility]: Dose Right [facility]: Teradose 4D [facility]: [employer] Technologies RADIATION DOSE: CT Rad equipment meets quality standard of care and radiation dose reduction techniq ues were employed. CTDIvol: 26.6 mGy. DLP: 601 mGy-cm. mGy. LIMITATIONS: None. FINDINGS: Alignment is anatomic. There has been interval posterior decompression C3-4, C4- 5, C5-6. No evidence of postoperative complication. Multilevel neural foraminal stenosis is unchanged. IMPRESSION: Interval posterior decompression C3-4 through C5-6. Otherwise no significant change. TECHNICAL DOCUMENTATION: JOB ID: [id number] Quality ID # [id number]: Final reports with documentation of one or more dose reduction techniques (e.g., Au tomated exposure control, adjustment of the mA and/or kV according to patient size, use of iterative reconstruction technique) 2010 [employer] All Rights Reserved Reading location - IP/workstation name: [email or web address]
== END ==
LOC: RAD 13:06
PROVIDERS: ATTEND Specialist
DX: M54.12 Radiculopathy, cervical region (principal)
CPT/HCPCS: 72125

== ENCOUNTER 2018-05-21 08:01 | Day surgery (SDC) | payer MEDICARE, BC ==
[~2018-05-21 08:01] MED LIST changes: +FENTANYL CITRATE INJ/PF 100 MCG/2 ML AMPUL ONE; -LACTATED RINGERS 1000 ML IV PRN; -LIDOCAINE 0.5% INJ-PF (5 MG/ML) 50 ML SDV SUBCUT PRN; +LIDOCAINE 1%/EPINEPHRINE INJ 20 ML VIAL ONE; +LIDOCAINE 2% INJ-PF (20 MG/ML) 10 ML AMPUL ONE; +MIDAZOLAM 2 MG/2 ML INJ ONE; +PROPOFOL INJ 200 MG/20 ML VIAL IV ONE
[2018-05-21 08:50] LABS: HEMATOCRIT 35.9 % (37.9-51.0); HEMOGLOBIN 12.3 g/dL (13.5-17.0); MEAN CORPUSCULAR HEMOGLOBIN 31.4 pg (27.0-33.4); MEAN CORPUSCULAR HGB CONC 34.4 g/dL (32.0-36.0); MEAN CORPUSCULAR VOLUME 91 fl (80-97); PLATELET COUNT 165 10^3/uL (150-450); RED BLOOD COUNT 3.93 10^6/uL (4.35-5.55); RED CELL DISTRIBUTION WIDTH 13.7 % (11.5-14.0); WHITE BLOOD COUNT 7.6 10^3/uL (4.0-10.5)
[2018-05-21 08:56] LABS: INTERNATIONAL RATION (INR) 0.94
[2018-05-21 08:57] LABS: PARTIAL THROMBOPLASTIN TIME 33.7 SEC (23.5-35.8)
[2018-05-21 09:11] LABS: ANION GAP 13 (5-19); BLOOD UREA NITROGEN 59 mg/dL (7-20); CALCIUM 8.9 mg/dL (8.4-10.2); CARBON DIOXIDE 25 mmol/L (22-30); CHLORIDE 107 mmol/L (98-107); GLUCOSE 102 mg/dL (75-110); POTASSIUM 4.4 mmol/L (3.6-5.0); SODIUM 145.3 mmol/L (137-145)
[2018-05-21] MEDS: POVIDONE-IODINE 5% OPH PREP SOLN 30 ML ONE ×2 (10:20→10:25)
[2018-05-21] MEDS: SODIUM BICARBONATE 8.4% INJ 50 MEQ/50 ML DISP.SYRIN ONE ×2 (10:20→10:24)
[2018-05-21] MEDS ORDERED: DIPHENHYDRAMINE HCL 50 MG/ML VIAL IV PRN (10:33)
[2018-05-21] MEDS ORDERED: ONDANSETRON HCL INJ/PF 4 MG/2 ML SDV IV PRN (10:33)
[2018-05-21] MEDS ORDERED: FENTANYL CITRATE INJ/PF 100 MCG/2 ML AMPUL IV PRN ×3 (10:33)
[2018-05-21] MEDS ORDERED: OXYCODONE-ACETAMINOPHEN 5-325 MG TABLET PO PRN (10:33)
[2018-05-21] MEDS ORDERED: PROMETHAZINE HCL INJ 25 MG/1 ML VIAL IV PRN ×2 (10:33)
[2018-05-21] MEDS ORDERED: MEPERIDINE HCL/PF INJ 25 MG/1 ML DISP.SYRIN IV PRN (10:33)
--- NOTE | 2018-05-21 11:26 | Operative Report ---
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 Patient was brought into the operating room and placed on the operating room table in a [supine] position. Patient was then prepped with a Betadine scrub and Betadine solution and draped in a sterile and aseptic manner. The area was then marked. 12 O'clock was marked towards the dorsum of the nose 3 O'clock was marked towards the medial canthus 6:00 was marked towards the lower eyelid 9:00 was marked towards the ala The area was then anesthetized with 1% lidocaine with epinephrine and bicarbonate for its anesthetic and hemostatic effects. The area was then excised and marked at 12:00. The specimen was sent for frozen section. The results came back that the deep and lateral margins were free. We had considered a primary closure but this would go against the natural relaxed skin tension lines. A primary closure would be too tight and would have increased chance of dehiscence. This will leave more of a scar so we decided to use a manner flap reconstruction which would camouflage the scar better and take tension off of the closure so that would be less chances of complications. Using a banner flap this would allow us to take some of the skin adjacent to where the there was more laxity and bring this into the area of the defect on the sidewall of the nose. Then we went ahead and outlined the flap and anesthetized it. We then incised the flap and developed a flap maintaining the subdermal plexus. Then we undermined 360 to allow for plate like scarring and minimize trap door deformity. Throughout the case hemostasis was achieved with the bipolar. We then sutured the flap into its new position using 5-0 Vicryl for the subcutaneous and deep dermis. Small dogears were removed. 5-0 Prolene was used to suture the flap into place. We then applied Dermabond followed by a light pressure dressing. Patient was then reversed from anesthesia and taken to the [facility] for recovery. The patient tolerated well. There were no complications. Lesion size was 1.1 cm approximately please see pathology for actual size. Portions of this note may be dictated using [email or web address] voice recognition software. Occasional variations and spelling and vocabulary could be possible and are unintentional. Additionally, there is a chance that some errors may not be caught or corrected. Please notify the author of any discrepancies noted or if any statements are unclear. Subjective: No complaints Objective: Vital signs stable afebrile No bleeding Dressing intact Assessment and plan: Doing well. Elevate the operative site. Resume medications. Take antibiotics for 1 day Follow-up Full instructions were given to the patient and family and they understand Portions of this note may be dictated using [email or web address] voice recognition software. Occasional variations and spelling and vocabulary could be possible and are unintentional. Additionally, there is a chance that some errors may not be caught or corrected. Please notify the offer of any discrepancies noted or if any statements are unclear.
--- NOTE | 2018-05-21 11:28 | Discharge Summary ---
Discharge Summary (SDC) - Discharge Final Diagnosis: Squamous cell carcinoma on the left side of the nose Date of Surgery: 05/21/18 Condition: Good Treatment or Instructions: Leave the top dressing on for 2 days, then removed. Clean the Dermabond glue once a day with peroxide. Antibiotics for 1 day, then discontinue. Elevate operative area to decrease swelling. Do not strain, or lift heavy objects. Call for excessive bleeding, increased temperature of 101, uncontrolled pain, or excessive nausea or vomiting. You may reach Dr. Hernandez through his office at [phone]. In the event of an emergency after hours, then contact Dr. Hernandez through [facility]. Return to the office for a postop check on . The time will be scheduled by the nursing staff of [facility] prior to discharge. Please give the patient a copy of their labs and EKG so they can bring this to their PMD. Thank you Portions of this note may be dictated using [employer] voice recognition software. Occasional variations and spelling and vocabulary could be possible and are unintentional. Additionally, there is a chance that some errors may not be caught or corrected. Please notify the offer of any discrepancies noted or if any statements are unclear. Referrals: ARLENE CHAVEZ MD [Primary Care Provider] -
--- NOTE | 2018-05-21 13:10 | EKG REPORT ---
SEVERITY:- ABNORMAL ECG - SINUS RHYTHM FIRST DEGREE AV BLOCK LEFT AXIS DEVIATION BORDERLINE T ABNORMALITIES, INFERIOR LEADS : Confirmed by: Ronit Acosta MD 21-May-2018 13:08:32
[2018-05-21 13:24] VITALS: BP 129/88
== END 2018-05-21 13:00 | disposition home or self-care (01) ==
LOC: OROUT 08:01
PROVIDERS: ATTEND Plastic Surgery
DX: C44.321 Squamous cell carcinoma of skin of nose (principal); L57.0 Actinic keratosis; L57.8 Other skin changes due to chronic exposure to nonionizing radiation; Z79.899 Other long term (current) drug therapy; Z79.4 Long term (current) use of insulin; M19.90 Unspecified osteoarthritis, unspecified site; I10 Essential (primary) hypertension; E11.9 Type 2 diabetes mellitus without complications; Z95.1 Presence of aortocoronary bypass graft; E66.9 Obesity, unspecified; Z85.528 Personal history of other malignant neoplasm of kidney; Z90.5 Acquired absence of kidney; Z68.31 Body mass index [BMI] 31.0-31.9, adult; Z01.818 Encounter for other preprocedural examination; Z85.828 Personal history of other malignant neoplasm of skin
CPT/HCPCS: 93005; 93010; 36415; 85027; 85610; 85730; 80048; 88305 ×2; 88331 ×2; 14060; J2250; J0690; J3010; J3490 ×4; J2704; 300

== ENCOUNTER 2018-10-14 22:37 | Emergency (ER) | payer MEDICARE, BC ==
[2018-10-14] MEDS ORDERED: NORMAL SALINE 1000 ML 1,000 ML IV ONE (22:44)
--- NOTE | 2018-10-14 22:49 | ER Document Report ---
ED General - General Stated Complaint: UNRESPONSIVE Time Seen by Provider: 10/14/18 22:41 Primary Care Provider: VALENTIN DENIS MD [ACTIVE STAFF] - Follow up as needed Notes: Patient is a 73-year-old male who had sudden onset severe back pain followed by hypotension and syncope. Paramedics arrived his systolic blood pressure was in the 60s. They gave him IV fluids and brought him straight here. Patient is currently awake but somnolent. He is able to answer some questions. He says that he has pain mainly in his back. He denies abdominal pain. No chest pain. Says he feels "very unwell". He does have history of one kidney. 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 His primary care doctor is Dr. Navneet Pérez. He had endograft repair of his aorta in 2004 or 2005. This was done in [place]. He is now followed by Dr. Harris, vascular surgeon. He is not on any blood thinning medications. TRAVEL OUTSIDE OF THE [place] IN LAST 30 DAYS: No - Related Data Allergies/Adverse Reactions: No Known Allergies Allergy (Verified 07/17/17 10:57) Past Medical History - Social History Smoking Status: Unknown if Ever Smoked Frequency of alcohol use: None Drug Abuse: None Family History: CAD - Father, CVA - Mother - Past Medical History Cardiac Medical History: Reports: Hx Coronary Artery Disease, Hx Hypercholesterolemia, Hx Hypertension, Hx Peripheral Vascular Disease - A bdominal aortic aneurysm status post repair Denies: Hx Heart Attack Pulmonary Medical History: Reports: Hx Pneumonia Denies: Hx Asthma, Hx Bronchitis, Hx COPD Neurological Medical History: Denies: Hx Cerebrovascular Accident, Hx Seizures Endocrine Medical History: Reports: Hx Diabetes Mellitus Type 2 Renal/ Medical History: Reports: Hx Benign Prostatic Hyperplasia. Denies: Hx Peritoneal Dialysis Malignancy Medical History: Reports Hx Prostate Cancer GI Medical History: Reports: Hx Colonoscopy. Denies: Hx Hepatitis, Hx Hiatal Hernia, Hx Ulcer Musculoskeletal Medical History: Reports Hx Arthritis - GENERALIZED Infectious Medical History: Denies: Hx Hepatitis Past Surgical History: Reports: Hx Kidney (Renal Surgery) - Right Nephrectomy, Hx Orthopedic Surgery - Back surgery Hip surgery, Hx Vascular Surgery - Endovascular sleeve for abdominal aortic aneurysm. Denies: Hx Open Heart Surgery, Hx Pacemaker - Immunizations Hx Diphtheria, Pertussis, Tetanus Vaccination: Yes Review of Systems - Review of Systems Notes: My Normal Review Basic REVIEW OF SYSTEMS: CONSTITUTIONAL : Denies fever, chills, or sweats. Denies recent illness. EENT: Denies eye, ear, throat, or mouth pain or symptoms. Denies nasal or sinus congestion. CARDIOVASCULAR: Denies chest pain. RESPIRATORY: Denies cough, cold, or chest congestion. Denies shortness of breath, difficulty breathing, or wheezing. GASTROINTESTINAL: Denies abdominal pain. Nausea. Denies constipation. Last BM: MUSCULOSKELETAL: Back pain. SKIN: Denies rash or skin lesions. HEMATOLOGIC : Denies easy bruising or bleeding. NEUROLOGICAL: Syncopal episodes. Denies headache. Denies weakness or paralysis or loss of use of either side. Denies problems with gait or speech. Denies sensory or motor loss. ALL OTHER SYSTEMS REVIEWED AND NEGATIVE. Physical Exam - Vital signs Vitals: Resp BP Pulse Ox 21 H 85/57 L 93 10/14/18 22:40 10/14/18 22:40 10/14/18 22:40 - Notes Notes: General Appearance: Well nourished, somnolent. Unwell appearing. Pale. Vitals: reviewed, See vital signs table. Head: no swelling or tenderness to the head Eyes: PERRL, EOMI, Conjuctiva clear Mouth: No decreasd moisture Throat: No tonsillar inflammation, No airway obstruction, No lymphadenopathy Neck: Supple, no neck tenderness, No thyromegaly Lungs: No wheezing, No rales, No rhonci, No accessory muscle use, good air exchange bilaterally. Heart: Normal rate, Regular rythm, No murmur, no rub Abdomen: Normal BS, soft, No rigidity, no actual pain in the abdomen with palpation to the abdomen however when I push in the patient's abdomen he says he has increasing pain into his back. Bedside FAST exam does not show obvious signs of free fluid however it is limited because patient has significant gas in his abdomen causing a lot of artifact. I cannot visualize his aorta on bedside ultrasound. Extremities: good pulses in all extremities, no swelling or tenderness in the extremities, no edema. Skin: warm, dry, appropriate color, no rash Neuro: speech clear, oriented x 3, normal affect, responds appropriately to questions. Course - Re-evaluation Re-evalutation: 10/14/18 22:47 Patient has sudden onset of severe back pain with hypotension with a history of AAA repair in the past. This is very concerning in that he may have dissection or aortic injury. I explained to the patient my concerns and the fact that we need to do a CTA of his chest and abdomen to investigate this further. I do not have MRI capabilities at night and therefore this is not an option. I did try to do a bedside ultrasound to look at the aorta; however, the patient is obese and I cannot see the aorta. I am aware that the patient has one kidney and looking at his previous kidney function his serum creatinine is usually somewhere between 2-1/2 and 3. I informed the patient that doing this test could hurt his kidney further and could cause further kidney damage; however, without the test I cannot make sure that he does not have a acute life- threatening problem with his aorta. Patient is understanding of this and is agreeable to going forward with the test. I did speak with the service tech who said that they will go as light on contrast as possible to try to minimize injury to the kidney. 10/14/18 23:50 CT scan does show evidence of symmetric peritoneal blood suggestive of endoleak. There is no active blush at this time. Hopefully this suggests that the patient did have some bleeding but has since stopped. His blood pressure has been labile and that sometimes his systolic will be in the 80s and other times will be a low 100s. I have ordered emergency release blood so that we can slowly give him some blood to help build up his blood volume again in case he starts bleeding again. I have called [facility] to discuss transfer. I did discuss with our surgeon here however he is a vascular surgeon which we do not have and therefore he needs to be transferred to another facility. I did discuss the case with cardiac connections at [facility]. They said that they will get me the vascular surgeon air conditioning specialist and asked me to push the images. I am waiting to hear back from the vascular surgeon on-call at [facility]. 10/15/18 00:[address] Harris, vascular surgeon, he agrees to accept the patient for transfer. I do no other check to see if we can fly. Patient's blood pressure currently in the 80s. He is now receiving blood. Family is agreeable to plan for transfer. They still not received the images divided. I did speak with the service tech, John, he said they are having some problems with this and he is working on it to try to get the CT images over to [facility]. 10/15/18 00:48 She has 2 peripheral IVs. He had a third but it collapsed. I did attempt a central line but patient's internal jugular continues collapse there is a pocket. Transport team is arrived and I do not want to delay his transfer further needs to work on peripheral IVs and therefore I will board central line. Patient's blood pressure started to increase. Therefore slow down blood tr ansfusion. Current blood pressures in the 140s systolic. Flight medics said that they will watch his blood pressure and treated to keep it lower if need be. Since receiving the blood is not had any further hypotension. Before receiving the blood her blood pressure was routinely in the 80s. Has improved with receiving the blood. Again being that his blood pressure is now running higher we have slow down the blood to help prevent any further hypertension in the flight crew will continue to reevaluate his blood pressure in route to determine if they have to give anything further to lower his blood pressure if it does start to go up again. Currently is medically stable for transport. 10/15/18 04:56 Dictation of this chart was performed using voice recognition software; therefore, there may be some unintended grammatical errors. - Vital Signs Vital signs: Temp Pulse Resp BP Pulse Ox 97.6 F 16 148/70 H 100 10/15/18 00:36 10/15/18 00:46 10/15/18 00:46 10/15/18 00:46 - Laboratory Result Diagrams: 10/14/18 22:40 10/14/18 22:40 Laboratory results interpreted by me: 10/14/18 10/14/18 10/14/18 22:40 22:40 22:40 RBC 3.18 L Hgb 10.1 L Hct 29.4 L Chloride 111 H Carbon Dioxide 19 L BUN 60 H Creatinine 3.13 H Est GFR ( Amer) 24 L Est GFR (Non-Af Amer) 20 L Glucose 156 H Calcium 7.6 L Total Protein 5.3 L Albumin 3.3 L Crossmatch See Detail - EKG Interpretation by Me Additional EKG results interpreted by me: 10/14/18 22:49 EKG is reviewed and interpreted by me. EKG shows sinus rhythm with a rate of [address] segment elevation or depression. No ischemic T wave inversions. IA interval, QRS duration, QTc intervals are within normal range. No old EKG available for comparison. Critical Care Note - Critical Care Note Total time excluding time spent on procedures (mins): 45 Comments: Critical care time for this patient not including time spent in procedures approximate 45 minutes due to frequent re-evaluations, management of retroperitoneal bleed from likely endovascular leak, discussion with specialists. Dictation of this chart was performed using voice recognition software; therefore, there may be some unintended grammatical errors. Discharge - Discharge Clinical Impression: Retroperitoneal bleed, History of AAA (abdominal aortic aneurysm) repair Condition: Serious Disposition: [facility] Referrals: VALENTIN DENIS MD [ACTIVE STAFF] - Follow up as needed
[2018-10-14 23:04] LABS: ABSOLUTE BASOPHILS # (AUTO) 0.1 10^3/uL (0.0-0.2); ABSOLUTE EOSINOPHILS # (AUTO) 0.5 10^3/uL (0.0-0.6); ABSOLUTE LYMPHOCYTES (AUTO) 2.6 10^3/uL (0.5-4.7); ABSOLUTE MONOCYTES (AUTO) 1.1 10^3/uL (0.1-1.4); BASOPHILS % (AUTO) 0.7 % (0-2); EOSINOPHILS % (AUTO) 4.6 % (0-6); HEMATOCRIT 29.4 % (37.9-51.0); HEMOGLOBIN 10.1 g/dL (13.5-17.0); LYMPHOCYTES % (AUTO) 25.5 % (13-45); MEAN CORPUSCULAR HEMOGLOBIN 31.6 pg (27.0-33.4); MEAN CORPUSCULAR HGB CONC 34.2 g/dL (32.0-36.0); MEAN CORPUSCULAR VOLUME 92 fl (80-97); MONOCYTES % (AUTO) 10.4 % (3-13); PLATELET COUNT 170 10^3/uL (150-450); RED BLOOD COUNT 3.18 10^6/uL (4.35-5.55); RED CELL DISTRIBUTION WIDTH 13.5 % (11.5-14.0); SEGMENTED NEUTROPHILS % (AUTO) 58.8 % (42-78); TOTAL CELLS COUNTED % (AUTO) 100 %; WHITE BLOOD COUNT 10.3 10^3/uL (4.0-10.5)
[2018-10-14 23:18] LABS: ALANINE AMINOTRANSFERASE 32 U/L (21-72); ALBUMIN 3.3 g/dL (3.5-5.0); ALKALINE PHOSPHATASE 67 U/L (38-126); ANION GAP 13 (5-19); ASPARTATE AMINO TRANSFERASE 18 U/L (17-59); BILIRUBIN,DIRECT 0.2 mg/dL (0.0-0.4); BILIRUBIN,TOTAL 0.2 mg/dL (0.2-1.3); BLOOD UREA NITROGEN 60 mg/dL (7-20); CALCIUM 7.6 mg/dL (8.4-10.2); CARBON DIOXIDE 19 mmol/L (22-30); CHLORIDE 111 mmol/L (98-107); GLUCOSE 156 mg/dL (75-110); POTASSIUM 3.9 mmol/L (3.6-5.0); SODIUM 142.7 mmol/L (137-145); TOTAL PROTEIN 5.3 g/dL (6.3-8.2)
[2018-10-14 23:26] LABS: LIPASE 143.9 U/L (23-300)
--- NOTE | 2018-10-14 23:26 | RADIOLOGY REPORT (SQ) ---
CLINICAL HISTORY: HX of triple A with severe back pain and hypotension COMPARISON: None. TECHNIQUE: CT ABDOMEN PELVIS WITHOUT THEN WITH IV CONTRAST, CT CHEST ANGIOGRAPHY WITHOUT THEN WITH IV CONTRAST on 10/14/2018 10:44 PM CDT. MIPS reconstructions were generated. This exam was performed according to our departmental dose-optimization program, which includes automated exposure control, adjustment of the mA and/or kV according to patient size and/or use of iterative reconstruction technique. FINDINGS: Vascular: Thoracic aorta is normal in course and caliber without aneurysm or dissection. Pulmonary arteries are suboptimally opacified with no acute or chronic filling defects. The abdominal aorta has been repaired with an endograft. Maximum sac diameter is 6.3 cm. There is no convincing endoleak. The heart is moderately enlarged. There is no pericardial effusion. Intrathoracic lymph nodes are not enlarged. There is no pleural effusion, pleural thickening or pneumothorax. Central airways are patent. There is bibasilar atelectasis. Abdomen: The liver is normal in appearance. There is no biliary dilatation. Gallbladder is normal in appearance. The pancreas and spleen are normal in appearance. Adrenal glands are unremarkable. There is a small cyst in the midpole of the left kidney. There is a inferior left renal cyst as well. The left kidney is mildly atrophic. Right kidney is absent. There is no free air. There is large amount of retroperitoneal blood. Pelvis: There is no bowel obstruction. Urinary bladder is unremarkable. There is no free fluid. The appendix is normal. Skeleton: There are no acute osseous findings. No suspicious bony lesions. Extensive lower lumbar fusion was performed. Right hip arthroplasty was performed. IMPRESSION: Status post abdominal aortic endograft placement with maximal aneurysm sac of 6.3 cm. Large amount of retroperitoneal blood suggests a significant endoleak, although one is not seen. Catheter angiogram may be necessary for further evaluation.
[2018-10-14] MEDS ORDERED: NORMAL SALINE 250 ML IV PRN (23:36)
[2018-10-15 00:53] VITALS: BP 148/70
== END 2018-10-15 01:03 | disposition short-term general hospital (02) ==
LOC: ER 22:37
DX: R58 Hemorrhage, not elsewhere classified (principal); Z98.890 Other specified postprocedural states; Z86.79 Personal history of other diseases of the circulatory system; I95.9 Hypotension, unspecified; R55 Syncope and collapse; M54.9 Dorsalgia, unspecified; R14.3 Flatulence; E66.9 Obesity, unspecified; I10 Essential (primary) hypertension; E11.51 Type 2 diabetes mellitus with diabetic peripheral angiopathy without gangrene; I25.10 Atherosclerotic heart disease of native coronary artery without angina pectoris; Z85.46 Personal history of malignant neoplasm of prostate; Z90.5 Acquired absence of kidney
CPT/HCPCS: 99291; 96360; 86900; 86901; 36415; 36430; 86850; 83690; 85025; 80053; 84484; 86920; 71275; 74174; C1751; P9016; J7030

== ENCOUNTER 2019-03-03 11:53 | Emergency (ER) | payer MEDICARE, BC ==
[2019-03-03 12:10] VITALS: BP 134/70
--- NOTE | 2019-03-03 12:15 | ER Document Report ---
ED Medical Screen (RME) - General Chief Complaint: Fall Stated Complaint: FALL INJURY Time Seen by Provider: 03/03/19 11:58 Primary Care Provider: ARLENE CHAVEZ MD [Primary Care Provider] - Follow up as needed Notes: 73-year-old male with diabetes, iron deficiency anemia, CKD, right hip replacement, and history of abdominal aortic aneurysm stent with repair presents to the emergency department after a fall on Sunday. Patient went to see his primary doctor today but could not get an appointment until and was recommended to go to urgent care or to the emergency room so they chose to come here. Patient states that he fell out of his chair at home, did not hit his head, landed on his left elbow, and has swelling of the dorsal aspect of the right hand and ecchymosis over his abdomen and left flank. Patient is not on anticoagulation, denies acute shortness of breath or chest pain, denies severe headache. Exam: Well-appearing in no acute distress, appears tired and is frequently yawning and shivering, swelling over the dorsal aspect of the left hand across his knuckles, an area of ecchymosis over the left suprapubic area of his abdomen, although exam is limited soft with no tenderness to deep palpation, area of ecchymosis over the mid axillary line in the left side I have greeted and performed a rapid initial assessment of this patient. A comprehensive ED assessment and evaluation of the patient, analysis of test results and completion of medical decision making process will be conducted by an additional ED providers. TRAVEL OUTSIDE OF THE [place] IN LAST 30 DAYS: No - Related Data Allergies/Adverse Reactions: No Known Allergies Allergy (Verified 07/17/17 10:57) Past Medical History - Past Medical History Cardiac Medical History: Reports: Hx Coronary Artery Disease, Hx Hypercholesterolemia, Hx Hypertension, Hx Peripheral Vascular Disease - Abdominal aortic aneurysm status post repair Denies: Hx Heart Attack Pulmonary Medical History: Reports: Hx Pneumonia Denies: Hx Asthma, Hx Bronchitis, Hx COPD Neurological Medical History: Denies: Hx Cerebrovascular Accident, Hx Seizures Endocrine Medical History: Reports: Hx Diabetes Mellitus Type 2 Renal/ Medical History: Reports: Hx Benign Prostatic Hyperplasia. Denies: Hx Peritoneal Dialysis Malignancy Medical History: Reports Hx Prostate Cancer GI Medical History: Reports: Hx Colonoscopy. Denies: Hx Hepatitis, Hx Hiatal Hernia, Hx Ulcer Musculoskeltal Medical History: Reports Hx Arthritis - GENERALIZED Infectious Medical History: Denies: Hx Hepatitis Past Surgical History: Reports: Hx Kidney (Renal Surgery) - Right Nephrectomy, Hx Orthopedic Surgery - Back surgery Hip surgery, Hx Vascular Surgery - Endovascular sleeve for abdominal aortic aneurysm. Denies: Hx Open Heart Surgery, Hx Pacemaker - Immunizations Hx Diphtheria, Pertussis, Tetanus Vaccination: Yes History of Influenza Vaccine for 03/2017 - 08/2017 Season: No Physical Exam - Vital signs Vitals: Temp Pulse Resp BP Pulse Ox 97.8 F 66 20 134/70 H 99 03/03/19 11:58 03/03/19 11:58 03/03/19 11:58 03/03/19 11:58 03/03/19 11:58 Course - Vital Signs Vital signs: Temp Pulse Resp BP Pulse Ox 97.8 F 66 20 134/70 H 99 03/03/19 11:58 03/03/19 11:58 03/03/19 11:58 03/03/19 11:58 03/03/19 11:58 Doctor's Discharge - Discharge Referrals: ARLENE CHAVEZ MD [Primary Care Provider] - Follow up as needed
[2019-03-03 12:58] LABS: APPEARANCE,URINE CLEAR; BILIRUBIN,URINE NEGATIVE (NEGATIVE); COLOR,URINE YELLOW; GLUCOSE, URINE NEGATIVE (NEGATIVE); KETONES,URINE NEGATIVE (NEGATIVE); LEUKOCYTE ESTERASE,URINE NEGATIVE (NEGATIVE); NITRITE,URINE NEGATIVE (NEGATIVE); PROTEIN,URINE 100 mg/dL (NEGATIVE); URINE SPECIFIC GRAVITY 1.013; UROBILINOGEN,URINE NEGATIVE mg/dL (<2.0)
[2019-03-03 13:02] LABS: ABSOLUTE BASOPHILS # (AUTO) 0.1 10^3/uL (0.0-0.2); ABSOLUTE EOSINOPHILS # (AUTO) 0.1 10^3/uL (0.0-0.6); ABSOLUTE LYMPHOCYTES (AUTO) 0.9 10^3/uL (0.5-4.7); ABSOLUTE MONOCYTES (AUTO) 0.9 10^3/uL (0.1-1.4); ABSOLUTE NEUT (AUTO) 10.4 10^3/uL (1.7-8.2); BASOPHILS % (AUTO) 0.5 % (0-2); EOSINOPHILS % (AUTO) 0.9 % (0-6); HEMATOCRIT 29.3 % (37.9-51.0); HEMOGLOBIN 9.9 g/dL (13.5-17.0); LYMPHOCYTES % (AUTO) 7.3 % (13-45); MEAN CORPUSCULAR HEMOGLOBIN 30.7 pg (27.0-33.4); MEAN CORPUSCULAR HGB CONC 33.8 g/dL (32.0-36.0); MEAN CORPUSCULAR VOLUME 91 fl (80-97); MONOCYTES % (AUTO) 6.9 % (3-13); RED BLOOD COUNT 3.23 10^6/uL (4.35-5.55); RED CELL DISTRIBUTION WIDTH 15.4 % (11.5-14.0); SEGMENTED NEUTROPHILS % (AUTO) 84.4 % (42-78); TOTAL CELLS COUNTED % (AUTO) 100 %; WHITE BLOOD COUNT 12.3 10^3/uL (4.0-10.5)
[2019-03-03 13:16] LABS: ALBUMIN 4.5 g/dL (3.5-5.0); ALKALINE PHOSPHATASE 66 U/L (38-126); ANION GAP 14 (5-19); ASPARTATE AMINO TRANSFERASE 24 U/L (17-59); BILIRUBIN,DIRECT 0.2 mg/dL (0.0-0.4); BILIRUBIN,TOTAL 0.5 mg/dL (0.2-1.3); BLOOD UREA NITROGEN 110 mg/dL (7-20); CALCIUM 9.4 mg/dL (8.4-10.2); CARBON DIOXIDE 23 mmol/L (22-30); CHLORIDE 106 mmol/L (98-107); GLUCOSE 103 mg/dL (75-110); POTASSIUM 4.9 mmol/L (3.6-5.0); TOTAL PROTEIN 7.8 g/dL (6.3-8.2)
--- NOTE | 2019-03-03 13:19 | RADIOLOGY REPORT (SQ) ---
EXAM DESCRIPTION: HAND LEFT 3 VIEWS COMPLETED DATE/TIME: 03/03/2019 1:08 pm REASON FOR STUDY: fall COMPARISON: None. EXAM PARAMETERS: NUMBER OF VIEWS: Three views. TECHNIQUE: AP, lateral and oblique radiographic images acquired of the left hand. LIMITATIONS: None. FINDINGS: MINERALIZATION: Normal. BONES: No acute fracture or dislocation. No worrisome bone lesions. JOINTS: No effusions. There is osteoarthritis at the 1st and 2nd carpometacarpal joints, and through out the distal interphalangeal joints and thumb interphalangeal joint. SOFT TISSUES: Diffuse dorsal left hand soft tissue swelling. No foreign body. OTHER: No other significant finding. IMPRESSION: Dorsal left hand soft tissue swelling. No acute fracture TECHNICAL DOCUMENTATION: JOB ID: [id number] [employer]- All Rights Reserved Reading location - IP/workstation name: [email or web address]
--- NOTE | 2019-03-03 13:21 | RADIOLOGY REPORT (SQ) ---
EXAM DESCRIPTION: CHEST 2 VIEWS COMPLETED DATE/TIME: 03/03/2019 1:08 pm REASON FOR STUDY: fall COMPARISON: 07/10/2017, 04/04/2015 EXAM PARAMETERS: NUMBER OF VIEWS: two views TECHNIQUE: Digital Frontal and Lateral radiographic views of the chest acquired. RADIATION DOSE: NA LIMITATIONS: none FINDINGS: LUNGS AND PLEURA: No opacities, masses or pneumothorax. No pleural effusion. MEDIASTINUM AND HILAR STRUCTURES: No masses or contour abnormalities. HEART AND VASCULAR STRUCTURES: Heart normal size. No evidence for failure. BONES: Old healed left lower lateral rib fractures HARDWARE: At the bottom edge of the field of view, an abdominal aortic stent graft is present OTHER: No other significant finding. IMPRESSION: Old left lower lateral rib fractures. No acute findings TECHNICAL DOCUMENTATION: JOB ID: [id number] [employer] (acquired by [employer])- All Rights Reserved Reading location - IP/workstation name: [email or web address]
[2019-03-03 13:22] LABS: PLATELET COUNT 78 10^3/uL (150-450)
--- NOTE | 2019-03-03 13:52 | ER Document Report ---
ED General - General Chief Complaint: Fall Stated Complaint: FALL INJURY Time Seen by Provider: 03/03/19 11:58 Primary Care Provider: ARLENE CHAVEZ MD [Primary Care Provider] - Follow up as needed TRAVEL OUTSIDE OF THE [place] IN LAST 30 DAYS: No - HPI Notes: Patient is a 73-year-old male who presents to the emergency department for evaluation. Evidently he fell on Sunday. He states his "legs gave out." He denies hitting his head or losing consciousness. He has no neck or back pain. He complains of pain primarily in his left hand and his left lateral chest. Wi fe states she is been checking him for bruises and just noticed the chest one yesterday. He does subcutaneous injections in his abdomen and the bruising seemed to worsen there. He has not had any sort of anticoagulation. Patient does have a history of CKD, follows with nephrology in [place]. He states his last creatinine was 3.8. He also recently started erythropoietin for his anemia. - Related Data Allergies/Adverse Reactions: No Known Allergies Allergy (Verified 07/17/17 10:57) Home Medications: Hydrochlorothiazide 50 mg, finasteride 5 mg daily, Ultram 50 mg 3 times daily as needed, Robaxin 500 mg 3 times daily as needed, Humalog, Tresiba, Lyrica Past Medical History - General Information source: Patient, Relative - Social History Smoking Status: Never Smoker Family History: CAD - Father, CVA - Mother Patient has suicidal ideation: No Patient has homicidal ideation: No - Past Medical History Cardiac Medical History: Reports: Hx Coronary Artery Disease, Hx Hypercholesterolemia, Hx Hypertension, Hx Peripheral Vascular Disease - Abdominal aortic aneurysm status post repair Denies: Hx Heart Attack Pulmonary Medical History: Reports: Hx Pneumonia Denies: Hx Asthma, Hx Bronchitis, Hx COPD Neurological Medical History: Denies: Hx Cerebrovascular Accident, Hx Seizures Endocrine Medical History: Reports: Hx Diabetes Mellitus Type 2 Renal/ Medical History: Reports: Hx Benign Prostatic Hyperplasia, Hx Renal Insufficiency. Denies: Hx Peritoneal Dialysis Malignancy Medical History: Reports Hx Prostate Cancer GI Medical History: Reports: Hx Colonoscopy. Denies: Hx Hepatitis, Hx Hiatal Hernia, Hx Ulcer Musculoskeletal Medical History: Reports Hx Arthritis - GENERALIZED Infectious Medical History: Denies: Hx Hepatitis Past Surgical History: Reports: Hx Kidney (Renal Surgery) - Right Nephrectomy, Hx Orthopedic Surgery - Back surgery Hip surgery, Hx Vascular Surgery - Endovascular sleeve for abdominal aortic aneurysm. Denies: Hx Open Heart Surgery, Hx Pacemaker - Immunizations Hx Diphtheria, Pertussis, Tetanus Vaccination: Yes Review of Systems - Review of Systems Constitutional: See HPI EENT: No symptoms reported Cardiovascular: No symptoms reported Respiratory: No symptoms reported Gastrointestinal: No symptoms reported Genitourinary: No symptoms reported Musculoskeletal: See HPI Skin: No symptoms reported Neurological/Psychological: No symptoms reported Physical Exam - Vital signs Vitals: Temp Pulse Resp BP Pulse Ox 97.8 F 66 20 134/70 H 99 03/03/19 11:58 03/03/19 11:58 03/03/19 11:58 03/03/19 11:58 03/03/19 11:58 - Notes Notes: Is a pleasant 73-year-old male who appears her stated age in no acute distress. Head is normocephalic and appears atraumatic, pupils are equal round, reactive to light. Oral mucosa is moist. Uvula is midline. Neck is supple. He does have midline scar, but no surrounding erythema, edema, induration. Heart is regular rate and rhythm, lungs are clear to station bilaterally. Chest wall excursion is equal bilaterally. He does have 8 x 3 cm ecchymosis extending an teriorly from the mid axillary line at approximately the fourth rib. No subcutaneous emphysema or crepitance is noted. Abdomen is soft. He does have ecchymosis consistent with subcutaneous injection just at the belt line. No significant tenderness. The remainder the abdomen is soft, nontender, normal active bowel sounds. Examination of the left hand yields a moderate amount of edema over the dorsum of the hand, particularly centered over the third metacarpophalangeal joint. He has full range of motion of the elbow, wrist, fingers, thumb. Sensation is intact, capillary refill is brisk. No anatomical snuffbox tenderness to palpation. Course - Re-evaluation Re-evalutation: 03/03/19 13:51 Patient presents emergency department for evaluation. He had imaging and orders as initially carried out via triage. Laboratory investigations revealed a hemoglobin of 9.9 and a creatinine of 4.8. His hemoglobin is near stable, but I am concerned that his creatinine has worsened significantly. This was discussed with the patient. He has an appointment with his bag grader 1 week from today. Findings were discussed the patient, and I urged him to keep this appointment. I also instructed him to call with lab results from today, to see if any further changes should be made prior to their appointment on Sunday. He was also urged to contact nephrology to let them know his labs did worsen come to see if any medication changes or more urgent treatment were indicated per them. They had already discussed with nephrology the possibility of an AV fistula placement for potential dialysis. The patient and his are voiced understanding. - Vital Signs Vital signs: Temp Pulse Resp BP Pulse Ox 97.8 F 66 20 134/70 H 99 03/03/19 11:58 03/03/19 11:58 03/03/19 11:58 03/03/19 11:58 03/03/19 11:58 - Laboratory Result Diagrams: 03/03/19 12:42 03/03/19 12:42 Laboratory results interpreted by me: 03/03/19 03/03/19 03/03/19 12:42 12:42 12:42 WBC 12.3 H RBC 3.23 L Hgb 9.9 L Hct 29.3 L RDW 15.4 H Plt Count 78 L Lymph % (Auto) 7.3 L Absolute Neuts (auto) 10.4 H Seg Neutrophils % 84.4 H BUN 110 H Creatinine 4.83 H Est GFR ( Amer) 14 L Est GFR (MDRD) Non-Af 12 L Urine Protein 100 H Urine Blood SMALL H - Diagnostic Test Radiology reviewed: Reports reviewed Radiology results interpreted by me: 03/03/19 13:54 Chest X-Ray 03/03/19 12:11 IMPRESSION: Old left lower lateral rib fractures. No acute findings Hand X-Ray 03/03/19 12:11 IMPRESSION: Dorsal left hand soft tissue swelling. No acute fracture Discharge - Discharge Clinical Impression: Abnormal renal function Contusion of left hand Qualifiers: Encounter type: initial encounter Qualified Code(s): S60.222A - Contusion of left hand, initial encounter Contusion of left chest wall Qualifiers: Encounter type: initial encounter Qualified Code(s): S20.212A - Contusion of left front wall of thorax, initial encounter Fall Qualifiers: Encounter type: initial encounter Qualified Code(s): W19.XXXA - Unspecified fall, initial encounter Condition: Stable Disposition: HOME, SELF-CARE Instructions: Contusion ([facility]), Rib Contusion ([facility]) Additional Instructions: X-rays of your chest and hand did not reveal any new fractures. Your lab work today did reveal worsening renal function. Your sodium was 143, potassium 4.9, chloride 106, bicarb 23, BUN 110, creatinine 4.83. You can report these numbers to nephrology, see if they have any recommendations prior to your follow-up appointment on Sunday. If you develop fevers, difficulty breathing, weakness, or any other new or concerning symptoms, return immediately to the emergency department for evaluation. Referrals: ARLENE CHAVEZ MD [Primary Care Provider] - Follow up as needed
== END 2019-03-03 15:16 | disposition home or self-care (01) ==
LOC: ER 11:53
DX: S60.222A Contusion of left hand, initial encounter (principal); S20.212A Contusion of left front wall of thorax, initial encounter; M79.642 Pain in left hand; R07.9 Chest pain, unspecified; W19.XXXA Unspecified fall, initial encounter; S20.219A Contusion of unspecified front wall of thorax, initial encounter; Z79.899 Other long term (current) drug therapy; I25.10 Atherosclerotic heart disease of native coronary artery without angina pectoris; D64.9 Anemia, unspecified; I10 Essential (primary) hypertension; E11.9 Type 2 diabetes mellitus without complications; Z79.4 Long term (current) use of insulin
CPT/HCPCS: 36415; 71046; 80053; 81001; 85025; 99283

== ENCOUNTER 2019-03-15 15:31 | Emergency (ER) | payer MEDICARE, BC ==
--- NOTE | 2019-03-15 18:26 | ER Document Report ---
ED General - General Chief Complaint: Skin Tear(s) Stated Complaint: POSTOP BLEEDING ON LEFT ARM Time Seen by Provider: 03/15/19 17:10 Primary Care Provider: Wound Care [Provider Group] - Follow up in 3-5 days ARLENE CHAVEZ MD [Primary Care Provider] - Follow up as needed Notes: Patient is a 73-year-old male that presents to the emergency department for chief complaint of bleeding wound. Patient states that the lesion removed from his left forearm 2 weeks ago, and has been persistently bleeding, despite multiple treatments by his plastic surgeon and had the lesion removed, with cautery continues to ooze blood despite these treatments, and they are advised to go to the ED to have it evaluated. He is being seen by echocardiograph technician, has an appointment coming up due to thrombocytopenia, and thinks that may have something to do with why he is having a hard time getting his wound to stop bleeding. He has not seen a wound clinic yet. He denies having any fevers, chills, night sweats they have not noticed any pus drainage from the wounds. He denies having any significant pain associated with this, denies any lightheadedness, dizziness. Past Medical History: Thrombocytopenia, cervical radiculopathy, chronic kidney disease, diabetes mellitus Past Surgical History: Skin lesion removal Social History: Denies tobacco, alcohol or drug use. Family History: Reviewed and noncontributory for presenting illness Allergies: Reviewed, see documented allergy list. REVIEW OF SYSTEMS: Other than noted above, the 12 point review of systems was reviewed with the patient and were negative, all pertinent findings are included in the HPI. PHYSICAL EXAMINATION: Vital signs reviewed, nursing noted reviewed. GENERAL: Elderly male, no acute distress. HEAD: Atraumatic, normocephalic. EYES: Eyes appear normal, extraocular movements intact, sclera anicteric, conjunctiva are normal. ENT: nares patent, oropharynx clear without exudates. Moist mucous membranes. NECK: Normal range of motion, supple without lymphadenopathy LUNGS: Breath sounds clear to auscultation bilaterally and equal. No wheezes rales or rhonchi. HEART: Regular rate and rhythm without murmurs ABDOMEN: Soft, nontender, normoactive bowel sounds. No rebound, guarding, or rigidity. No masses appreciated. EXTREMITIES: Patient's left forearm, has a skin tear, that is oozing blood, and an area where he had a skin lesion removal, that is oozing but as well, no pus drainage or signs of infection. There is mild ecchymosis surrounding these areas that appears to be healing. Patient otherwise has good range of motion of his extremities, cap refill distally is less than 3 seconds in all digits, distal pulses intact, sensation intact distally. NEUROLOGICAL: No focal neurological deficits. Moves all extremities spontaneously Motor and sensory grossly intact on exam. PSYCH: Normal mood, normal affect. SKIN: Warm, Dry, normal turgor, mild pallor noted, multiple areas of healing ecchymosis noted of the patient's arms, mid abdomen, and left lower extremity. TRAVEL OUTSIDE OF THE [place] IN LAST 30 DAYS: No - Related Data Allergies/Adverse Reactions: No Known Allergies Allergy (Verified 03/15/19 16:05) Past Medical History - Social History Smoking Status: Unknown if Ever Smoked Family History: CAD - Father, CVA - Mother Patient has suicidal ideation: No Patient has homicidal ideation: No - Past Medical History Cardiac Medical History: Reports: Hx Coronary Artery Disease, Hx Hypercholesterolemia, Hx Hypertension, Hx Peripheral Vascular Disease - Abdominal aortic aneurysm status post repair Denies: Hx Heart Attack Pulmonary Medical History: Reports: Hx Pneumonia Denies: Hx Asthma, Hx Bronchitis, Hx COPD Neurological Medical History: Denies: Hx Cerebrovascular Accident, Hx Seizures Endocrine Medical History: Reports: Hx Diabetes Mellitus Type 2 Renal/ Medical History: Reports: Hx Benign Prostatic Hyperplasia, Hx Renal Insufficiency. Denies: Hx Peritoneal Dialysis Malignancy Medical History: Reports Hx Prostate Cancer GI Medical History: Reports: Hx Colonoscopy. Denies: Hx Hepatitis, Hx Hiatal Hernia, Hx Ulcer Musculoskeletal Medical History: Reports Hx Arthritis - GENERALIZED Infectious Medical History: Denies: Hx Hepatitis Past Surgical History: Reports: Hx Kidney (Renal Surgery) - Right Nephrectomy, Hx Orthopedic Surgery - Back surgery Hip surgery, Hx Vascular Surgery - Endovascular sleeve for abdominal aortic aneurysm. Denies: Hx Open Heart Surgery, Hx Pacemaker - Immunizations Hx Diphtheria, Pertussis, Tetanus Vaccination: Yes Physical Exam - Vital signs Vitals: Temp Pulse Resp BP Pulse Ox 97.4 F 64 18 142/59 H 100 03/15/19 15:38 03/15/19 15:38 03/15/19 15:38 03/15/19 15:38 03/15/19 15:38 Course - Re-evaluation Re-evalutation: Patient seen and examined, vital signs reviewed, on my exam the patient had 2 wounds that are consistently oozing blood, despite direct pressure, therefore placed Surgifoam gel dressings to both his skin tear, and his prior wound from skin lesion removal, then nonadhesive dressings were placed, then Kerlix gauze and Coban. This was kept in place for 30 minutes, the wounds did mildly saturate the initial dressing, this was taken down, Surgifoam was left in place, there is no further active bleeding, it was redressed with Telfa and Kerlix gauze and Coban, and patient was discharged home, was given instructions to leave the dressing in place until Sunday, and to redress it at that time to follow-up with wound clinic. Patient was agreeable to this plan of care and d ischarged home. - Vital Signs Vital signs: Temp Pulse Resp BP Pulse Ox 97.5 F 63 14 147/73 H 97 03/15/19 18:37 03/15/19 18:37 03/15/19 18:37 03/15/19 18:37 03/15/19 18:37 Discharge - Discharge Clinical Impression: Bleeding from wound Condition: Stable Disposition: HOME, SELF-CARE Instructions: Dressing Instructions for Open Wounds ([facility]) Additional Instructions: Please follow-up with the wound clinic on Sunday, call for an appointment, leave his dressing in place unless it becomes completely saturated with blood, then it can be changed prior to Sunday. If there is further concern, he can always return to the emergency department to have it reevaluated. Leave the dressings in place, that are on the skin itself. Those will fall off on their own. Referrals: ARLENE CHAVEZ MD [Primary Care Provider] - Follow up as needed Wound Care [Provider Group] - Follow up in 3-5 days
[2019-03-15 18:44] VITALS: BP 147/73
== END 2019-03-15 18:44 | disposition home or self-care (01) ==
LOC: ER 15:31
DX: S51.812A Laceration without foreign body of left forearm, initial encounter (principal); W19.XXXA Unspecified fall, initial encounter; L76.21 Postprocedural hemorrhage of skin and subcutaneous tissue following a dermatologic procedure; Y83.8 Other surgical procedures as the cause of abnormal reaction of the patient, or of later complication, without mention of misadventure at the time of the procedure; R23.1 Pallor; D69.6 Thrombocytopenia, unspecified; E11.51 Type 2 diabetes mellitus with diabetic peripheral angiopathy without gangrene; I25.10 Atherosclerotic heart disease of native coronary artery without angina pectoris; I10 Essential (primary) hypertension; Z85.46 Personal history of malignant neoplasm of prostate
CPT/HCPCS: 99282

== ENCOUNTER 2019-03-18 09:48 | Emergency (ER) | payer MEDICARE, BC ==
[2019-03-18] MEDS ORDERED: TRANEXAMIC ACID INJ/PF 1,000 MG/10 ML SDV IV ONE (11:38)
--- NOTE | 2019-03-18 14:04 | ER Document Report ---
ED General - General Chief Complaint: Arm Injury Stated Complaint: ARM PAIN Time Seen by Provider: 03/18/19 10:51 Primary Care Provider: ARLENE CHAVEZ MD [Primary Care Provider] - Follow up as needed TRAVEL OUTSIDE OF THE [place] IN LAST 30 DAYS: No - HPI Notes: Patient is a 73-year-old male who presents emergency department for evaluation of bleeding. He was having lesions removed from his left forearm, this is a couple weeks ago. He had continued bleeding. He was actually seen here, treated with Gelfoam. He states he has been redressing the bandages but he continues to use. He denies any chest pain or shortness of breath. No numbness or tingling. He does have a history of thrombocytopenia, is awaiting referral on to hematology for evaluation of that. He denies any pain. Denies any new injury to the area. - Related Data Allergies/Adverse Reactions: No Known Allergies Allergy (Verified 03/18/19 09:53) Past Medical History - General Information source: Patient - Social History Smoking Status: Never Smoker Chew tobacco use (# tins/day): No Frequency of alcohol use: None Drug Abuse: None Family History: CAD - Father, CVA - Mother Patient has suicidal ideation: No Patient has homicidal ideation: No - Past Medical History Cardiac Medical History: Reports: Hx Coronary Artery Disease, Hx Hypercholesterolemia, Hx Hypertension, Hx Peripheral Vascular Disease - Abdominal aortic aneurysm status post repair Denies: Hx Heart Attack Pulmonary Medical History: Reports: Hx Pneumonia Denies: Hx Asthma, Hx Bronchitis, Hx COPD Neurological Medical History: Denies: Hx Cerebrovascular Accident, Hx Seizures Endocrine Medical History: Reports: Hx Diabetes Mellitus Type 2 Renal/ Medical History: Reports: Hx Benign Prostatic Hyperplasia, Hx Renal Insufficiency. Denies: Hx Peritoneal Dialysis Malignancy Medical History: Reports Hx Prostate Cancer GI Medical History: Reports: Hx Colonoscopy. Denies: Hx Hepatitis, Hx Hiatal Hernia, Hx Ulcer Musculoskeletal Medical History: Reports Hx Arthritis - GENERALIZED Infectious Medical History: Denies: Hx Hepatitis Past Surgical History: Reports: Hx Kidney (Renal Surgery) - Right Nephrectomy, Hx Orthopedic Surgery - Back surgery Hip surgery, Hx Vascular Surgery - Endovascular sleeve for abdominal aortic aneurysm. Denies: Hx Open Heart Surgery, Hx Pacemaker - Immunizations Hx Diphtheria, Pertussis, Tetanus Vaccination: Yes Review of Systems - Review of Systems Constitutional: No symptoms reported EENT: No symptoms reported Cardiovascular: No symptoms reported Respiratory: No symptoms reported Gastrointestinal: No symptoms reported Genitourinary: No symptoms reported Musculoskeletal: No symptoms reported Skin: No symptoms reported Hematologic/Lymphatic: See HPI Neurological/Psychological: No symptoms reported Physical Exam - Vital signs Vitals: Temp Pulse BP Pulse Ox 97.4 F 77 124/57 L 100 03/18/19 09:53 10 09:53 03/18/19 09:53 03/18/19 09:53 - Notes Notes: Is a very pleasant 73-year-old male who appears his stated age in acute distress. Is neuropsych atraumatic. Oral mucous is moist. Heart is regular rate and rhythm, lungs are clear to auscultation bilaterally. Examination of the left forearm yields significant edema from a clearly overly tight bandage. He does have some duskiness and decreased capillary refill in all of his fingers. Bandages taken down. He does have 2 lesions, still with Gelfoam in place, on the forearm. The one overlying the radial aspect of the forearm is smaller, no active bleeding. He does have a second lesion mid forearm, approximately 2-1/2 cm wide, with active oozing. Neurovascularly intact distally, circulation improved with removal of the bandage. Course - Re-evaluation Re-evalutation: 03/18/19 14:09 Patient presents emergency department for evaluation. The patient's was instructed that his bandage was indeed too tight. The wound was thoroughly cleansed, the patient was given TXA. His bleeding slowed significantly. The wound was then dressed with quick clot and gauze. Patient's wound did not bleed through. We will have him follow-up with primary care and hematology, return to the ED with worsening. - Vital Signs Vital signs: Temp Pulse Resp BP Pulse Ox 97.4 F 77 124/57 L 100 03/18/19 09:53 03/18/19 09:53 03/18/19 09:53 03/18/19 09:53 Discharge - Discharge Clinical Impression: Bleeding from wound Condition: Stable Disposition: HOME, SELF-CARE Instructions: Dressing Instructions for Open Wounds ([facility]) Additional Instructions: Leave bandage in place for 24 to 48 hours, unless it becomes visibly soiled. Following change bandage daily. Keep arm elevated as discussed. Follow-up with your doctor this week. Return to the emergency department with worsening or new concerning symptoms of any sort. Referrals: ARLENE CHAVEZ MD [Primary Care Provider] - Follow up as needed
[2019-03-18 14:33] VITALS: BP 141/76
== END 2019-03-18 14:20 | disposition home or self-care (01) ==
LOC: ER 09:48
DX: R58 Hemorrhage, not elsewhere classified (principal); R60.0 Localized edema; Z98.890 Other specified postprocedural states; I25.10 Atherosclerotic heart disease of native coronary artery without angina pectoris; I10 Essential (primary) hypertension; E11.51 Type 2 diabetes mellitus with diabetic peripheral angiopathy without gangrene; Z85.46 Personal history of malignant neoplasm of prostate
CPT/HCPCS: 96374; 99283; J3490

== ENCOUNTER 2019-04-07 19:55 | Emergency (ER) | payer MEDICARE, BC ==
[2019-04-07] MEDS ORDERED: OXYMETAZOLINE HCL 0.05% NASAL SPRAY 15 ML BOTTLE NASL ONE (20:14)
--- NOTE | 2019-04-07 20:16 | ER Document Report ---
ED Medical Screen (RME) - General Chief Complaint: Nose Bleed Stated Complaint: NOSE BLEED Time Seen by Provider: 04/07/19 20:08 Primary Care Provider: ARLENE CHAVEZ MD [Primary Care Provider] - Follow up as needed Information source: Patient Notes: Patient presents complaining of nosebleed that is been off and on since this morning. Family reports that they have been pinching and using cold compresses throughout the day to attempt to get bleeding to stop. states bleeding will stop for short time and then will restart. Patient denies any nausea or vomiting. Patient states that he has been having bloody drainage to the back of the throat. Patient has a history of diabetes, chronic kidney disease as well as low platelets. 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 does report unexplained bruising to the extremities. I have greeted and performed a rapid initial assessment of this patient. A comprehensive ED assessment and evaluation of the patient, analysis of test results and completion of the medical decision making process will be conducted by additional ED providers. TRAVEL OUTSIDE OF THE [place] IN LAST 30 DAYS: No - Related Data Allergies/Adverse Reactions: No Known Allergies Allergy (Verified 03/18/19 09:53) Past Medical History - Past Medical History Cardiac Medical History: Reports: Hx Coronary Artery Disease, Hx Hypercholesterolemia, Hx Hypertension, Hx Peripheral Vascular Disease - Abdominal aortic aneurysm status post repair Denies: Hx Heart Attack Pulmonary Medical History: Reports: Hx Pneumonia Denies: Hx Asthma, Hx Bronchitis, Hx COPD Neurological Medical History: Denies: Hx Cerebrovascular Accident, Hx Seizures Endocrine Medical History: Reports: Hx Diabetes Mellitus Type 2 Renal/ Medical History: Reports: Hx Benign Prostatic Hyperplasia, Hx Renal Insufficiency. Denies: Hx Peritoneal Dialysis Malignancy Medical History: Reports Hx Prostate Cancer GI Medical History: Reports: Hx Colonoscopy. Denies: Hx Hepatitis, Hx Hiatal Hernia, Hx Ulcer Musculoskeltal Medical History: Reports Hx Arthritis - GENERALIZED Infectious Medical History: Denies: Hx Hepatitis Past Surgical History: Reports: Hx Kidney (Renal Surgery) - Right Nephrectomy, Hx Orthopedic Surgery - Back surgery Hip surgery, Hx Vascular Surgery - Endovascular sleeve for abdominal aortic aneurysm. Denies: Hx Open Heart Surgery, Hx Pacemaker - Immunizations Hx Diphtheria, Pertussis, Tetanus Vaccination: Yes Physical Exam - Vital signs Vitals: Temp Pulse Resp BP Pulse Ox 98.0 F 83 18 102/83 93 04/07/19 20:00 10/28/19 20:00 04/07/19 20:00 04/07/19 20:00 04/07/19 20:00 - General General appearance: Appears well, Alert Notes: Bloody gauze noted to right nostril, minimal blood in posterior pharynx Course - Vital Signs Vital signs: Temp Pulse Resp BP Pulse Ox 98.0 F 83 18 102/83 93 04/07/19 20:00 04/07/19 20:00 04/07/19 20:00 04/07/19 20:00 04/07/19 20:00 Doctor's Discharge - Discharge Referrals: ARLENE CHAVEZ MD [Primary Care Provider] - Follow up as needed
[2019-04-07 21:14] LABS: ABSOLUTE EOSINOPHILS # (AUTO) 0.2 10^3/uL (0.0-0.6); ABSOLUTE LYMPHOCYTES (AUTO) 0.6 10^3/uL (0.5-4.7); ABSOLUTE MONOCYTES (AUTO) 0.8 10^3/uL (0.1-1.4); BASOPHILS % (AUTO) 0.5 % (0-2); EOSINOPHILS % (AUTO) 2.2 % (0-6); HEMATOCRIT 24.5 % (37.9-51.0); HEMOGLOBIN 8.2 g/dL (13.5-17.0); LYMPHOCYTES % (AUTO) 6.6 % (13-45); MEAN CORPUSCULAR HEMOGLOBIN 32.6 pg (27.0-33.4); MEAN CORPUSCULAR HGB CONC 33.5 g/dL (32.0-36.0); MEAN CORPUSCULAR VOLUME 97 fl (80-97); MONOCYTES % (AUTO) 8.3 % (3-13); RED BLOOD COUNT 2.52 10^6/uL (4.35-5.55); RED CELL DISTRIBUTION WIDTH 17.5 % (11.5-14.0); SEGMENTED NEUTROPHILS % (AUTO) 82.4 % (42-78); TOTAL CELLS COUNTED % (AUTO) 100 %; WHITE BLOOD COUNT 9.7 10^3/uL (4.0-10.5)
[2019-04-07 21:27] LABS: INTERNATIONAL RATION (INR) 1.36; PROTHROMBIN TIME 16.9 SEC (11.4-15.4)
[2019-04-07 21:32] LABS: ALBUMIN 4.2 g/dL (3.5-5.0); ALKALINE PHOSPHATASE 54 U/L (38-126); ANION GAP 11 (5-19); ASPARTATE AMINO TRANSFERASE 20 U/L (17-59); BILIRUBIN,DIRECT 0.2 mg/dL (0.0-0.4); BILIRUBIN,TOTAL 0.4 mg/dL (0.2-1.3); BLOOD UREA NITROGEN 93 mg/dL (7-20); CALCIUM 8.7 mg/dL (8.4-10.2); CARBON DIOXIDE 22 mmol/L (22-30); CHLORIDE 113 mmol/L (98-107); GLUCOSE 106 mg/dL (75-110); PLATELET COUNT 84 10^3/uL (150-450); POTASSIUM 5.5 mmol/L (3.6-5.0)
--- NOTE | 2019-04-07 22:26 | ER Document Report ---
ED General - General Chief Complaint: Nose Bleed Stated Complaint: NOSE BLEED Time Seen by Provider: 04/07/19 20:08 Primary Care Provider: ARLENE CHAVEZ MD [Primary Care Provider] - Follow up as needed TRAVEL OUTSIDE OF THE [place] IN LAST 30 DAYS: No - HPI Notes: Is a 74-year-old male presents emergency department for evaluation of a nosebleed. He has had bleeding from his right nare intermittently "all day." He denies any trauma, he is not on blood thinners. No chest pain or trouble breathing. Patient's also notes that he had an injury to his left lower leg, his leg is been swollen for about a week. She has assured me today and states that seems warmer than normal. No fevers or chills, no nausea or vomiting. Patient is currently receiving Procrit, per his last hemoglobin was 8.1. He is being set up with an AV fistula on 15 April to start dialysis. - Related Data Allergies/Adverse Reactions: No Known Allergies Allergy (Verified 03/18/19 09:53) Home Medications: Reviewed, please see note Past Medical History - General Information source: Patient, Relative - Social History Smoking Status: Unknown if Ever Smoked Family History: CAD - Father, CVA - Mother Patient has suicidal ideation: No Patient has homicidal ideation: No - Past Medical History Cardiac Medical History: Reports: Hx Coronary Artery Disease, Hx Hypercholesterolemia, Hx Hypertension, Hx Peripheral Vascular Disease - Abdominal aortic aneurysm status post repair Denies: Hx Heart Attack Pulmonary Medical History: Reports: Hx Pneumonia Denies: Hx Asthma, Hx Bronchitis, Hx COPD Neurological Medical History: Denies: Hx Cerebrovascular Accident, Hx Seizures Endocrine Medical History: Reports: Hx Diabetes Mellitus Type 2 Renal/ Medical History: Reports: Hx Benign Prostatic Hyperplasia, Hx Renal Insufficiency. Denies: Hx Peritoneal Dialysis Malignancy Medical History: Reports Hx Prostate Cancer GI Medical History: Reports: Hx Colonoscopy. Denies: Hx Hepatitis, Hx Hiatal Hernia, Hx Ulcer Musculoskeletal Medical History: Reports Hx Arthritis - GENERALIZED Infectious Medical History: Denies: Hx Hepatitis Past Surgical History: Reports: Hx Kidney (Renal Surgery) - Right Nephrectomy, Hx Orthopedic Surgery - Back surgery Hip surgery, Hx Vascular Surgery - Endovascular sleeve for abdominal aortic aneurysm. Denies: Hx Open Heart Surgery, Hx Pacemaker - Immunizations Hx Diphtheria, Pertussis, Tetanus Vaccination: Yes Review of Systems - Review of Systems Constitutional: No symptoms reported EENT: See HPI Cardiovascular: No symptoms reported Respiratory: No symptoms reported Gastrointestinal: No symptoms reported Genitourinary: No symptoms reported Musculoskeletal: See HPI Skin: See HPI Neurological/Psychological: No symptoms reported Physical Exam - Vital signs Vitals: Temp Pulse Resp BP Pulse Ox 98.0 F 83 18 102/83 93 04/07/19 20:00 04/07/19 20:00 04/07/19 20:00 04/07/19 20:00 04/07/19 20:00 - Notes Notes: Is a pleasant 74-year-old male who appears older than his stated age in no acute distress. Head is normal cephalic and atraumatic. Pupils are equal round, reactive to light. There is evidence of recent epistaxis from the right nostril, with a small area on the nasal septum, consistent with recent bleeding. No active bleeding is noted. No blood noted in the left left nostril. Oral mucosa is moist. Heart is regular, lungs are clear to station bilaterally. Abdomen soft, nontender, normoactive bowel sounds. Examination of the extremities pitting edema on the left lower extremity with associated calor. Mild diffuse erythema. There is a 1.5 cm superficial abrasion noted to the lateral mid calf. No purulence or fluctuance is noted. Neurovascular intact distally. He does have some healing ecchymotic lesions noted to the toes. Sensation is intact. Course - Re-evaluation Re-evalutation: 04/07/19 22:24 Patient presents emergency department for evaluation. He had epistaxis, active epistaxis at this time. He is achieved hemostasis. His hemoglobin is actually slightly better than it was on last measurement per family. In regards to his leg, it seems to be more vasculitic warmth. I am not overly concerned about an infection in this patient has been afebrile, no vomiting. I am concerned about the possibility of a DVT. I do not have Doppler at this time. I am not inclined to anticoagulate this patient has had significant recent bleeding and a borderline hemoglobin, without definitive reason to do so. We will give him an outpatient order for venous Doppler to be performed tomorrow. Patient is told not to blow his nose, any significant manipulation of the nostril at all. He voiced understanding to this. He is to follow-up with primary care in 1 to 2 days, return to the ED with worsening. - Vital Signs Vital signs: Temp Pulse Resp BP Pulse Ox 98.0 F 83 21 H 151/85 H 98 04/07/19 20:00 04/07/19 20:00 04/07/19 21:01 04/07/19 21:01 04/07/19 21:01 - Laboratory Result Diagrams: 04/07/19 21:01 04/07/19 21:01 Laboratory results interpreted by me: 04/07/19 04/07/19 04/07/19 21:01 21:01 21:01 RBC 2.52 L Hgb 8.2 L Hct 24.5 L RDW 17.5 H Plt Count 84 L Lymph % (Auto) 6.6 L Seg Neutrophils % 82.4 H PT 16.9 H APTT 40.0 H Sodium 146.3 H Potassium 5.5 H Chloride 113 H BUN 93 H Creatinine 5.51 H Est GFR ( Amer) 12 L Est GFR (MDRD) Non-Af 10 L Discharge - Discharge Clinical Impression: Epistaxis not due to trauma, Edema of left lower extremity Anemia Qualifiers: Chronic kidney disease stage: stage 5, not on chronic dialysis Condition: Stable Disposition: HOME, SELF-CARE Instructions: Nosebleed Instructions ([facility]) Additional Instructions: Please do not blow your nose for 24 hours. If rebleeding start, apply direct pressure for 15 minutes. You can also try the Afrin nasal spray. If your bleeding continues, please return to the ED. You should also have a venous Doppler of your left leg to evaluate for possible blood clot. You have been giving an order for this, please call the phone number to have this scheduled. If you develop chest pain, shortness of breath, or any other new or concerning symptoms, return immediately to the emergency department for reevaluation. Forms: Follow-Up Radiology Testing Referrals: ARLENE CHAVEZ MD [Primary Care Provider] - Follow up as needed
[2019-04-07 22:30] VITALS: BP 166/92
== END 2019-04-07 22:48 | disposition home or self-care (01) ==
LOC: ER 19:55
DX: R04.0 Epistaxis (principal); R60.0 Localized edema; R58 Hemorrhage, not elsewhere classified; I12.0 Hypertensive chronic kidney disease with stage 5 chronic kidney disease or end stage renal disease; E11.22 Type 2 diabetes mellitus with diabetic chronic kidney disease; N18.5 Chronic kidney disease, stage 5; D63.1 Anemia in chronic kidney disease; E11.51 Type 2 diabetes mellitus with diabetic peripheral angiopathy without gangrene; S80.812A Abrasion, left lower leg, initial encounter; X58.XXXA Exposure to other specified factors, initial encounter; I25.10 Atherosclerotic heart disease of native coronary artery without angina pectoris; Z85.46 Personal history of malignant neoplasm of prostate; Z90.5 Acquired absence of kidney
CPT/HCPCS: 99283; 36415; 85025; 85610; 85730; 80053; A9270; J3490

== ENCOUNTER 2019-04-08 09:58 | Emergency (ER) | payer MEDICARE, BC ==
[2019-04-08] MEDS ORDERED: SILVER NITRATE APPLICATOR 1 APPLIC STICK..EA. 10/PACKAGE TOP ONE (11:21)
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
[2019-04-08 14:33] VITALS: BP 136/56
--- NOTE | 2019-04-08 14:59 | RADIOLOGY REPORT (SQ) ---
EXAM DESCRIPTION: VENOUS UNILATERAL LOWER COMPLETED DATE/TIME: 04/08/2019 2:46 pm REASON FOR STUDY: pain left leg / Hx clots COMPARISON: None. TECHNIQUE: Dynamic and static vega scale and color images acquired of the left leg venous system. Se lected spectral images acquired with additional compression and augmentation maneuvers. The contralat eral common femoral vein and saphenofemoral junction were also imaged. Images stored on PACS. LIMITATIONS: None. FINDINGS: COMMON FEMORAL: Normal phasicity, compression and augmentation. No visualized echogenic ma terial on vega scale. No defects on color images. FEMORAL: Normal compression and augmentation. No visualized echogenic material on vega scale. No defe cts on color images. POPLITEAL: Normal compression, augmentation. No visualized echogenic material on vega scale. No defec ts on color images. CALF VESSELS: Normal compression, augmentation. No visualized echogenic material on vega scale. No de fects on color images. GSV and SSV: Normal compression, augmentation. No visualized echogenic material on vega scale. No def ects on color images. ANY DEEP VENOUS INSUFFICIENCY: Not evaluated. ANY EVIDENCE OF POPLITEAL CYST: No. OTHER: There is a subcutaneous cystic area in the region of the injury that measures 23 x 6 x 17 mm. CONTRALATERAL COMMON FEMORAL VEIN AND SAPHENOFEMORAL JUNCTION: Normal phasicity, compression and augmentation. No visualized echogenic material on vega scale. No de fects on color images. IMPRESSION: No DVT or SVT in the left leg. Small subcutaneous hematoma. TECHNICAL DOCUMENTATION: JOB ID: [id number] [employer]- All Rights Reserved Reading location - IP/workstation name: [email or web address]
== END 2019-04-08 14:59 | disposition home or self-care (01) ==
LOC: ER 09:58
DX: R04.0 Epistaxis (principal); I25.10 Atherosclerotic heart disease of native coronary artery without angina pectoris; E78.00 Pure hypercholesterolemia, unspecified; I10 Essential (primary) hypertension; E11.9 Type 2 diabetes mellitus without complications
CPT/HCPCS: 93971; 99283

== ENCOUNTER 2019-04-09 06:46 | Emergency (ER) | payer MEDICARE, BC ==
--- NOTE | 2019-04-09 08:32 | ER Document Report ---
ED ENT - General Chief Complaint: Nose Bleed Stated Complaint: NOSE BLEEDING Time Seen by Provider: 04/09/19 07:29 Primary Care Provider: ARLENE CHAVEZ MD [Primary Care Provider] - Follow up as needed Mode of Arrival: Ambulatory Information source: Patient TRAVEL OUTSIDE OF THE [place] IN LAST 30 DAYS: No - HPI Notes: Patient presents with right-sided nosebleed. Patient was here yesterday for a nosebleed. At that time silver nitrate was used and the bleeding stopped. However approximately 6 to 7 hours ago he woke up with melanite with bleeding once again. By the time he arrived here he had stopped again. He is occasionally spitting out 1 to 2 cc of blood since then. Patient does have a history of low platelets and is currently awaiting a fistula for dialysis. He also has a history of anemia and is scheduled for a Procrit infusion this week. Patient denies any pain. No dizziness lightheadedness. No trouble breathing. Patient symptoms were mild. They were right sided nosebleed. Nothing made it better or worse. It was intermittent. There is no radiation of symptoms. - Related Data Allergies/Adverse Reactions: No Known Allergies Allergy (Verified 03/18/19 09:53) Past Medical History - General Information source: Patient, Relative - Social History Smoking Status: Former Smoker Chew tobacco use (# tins/day): No Frequency of alcohol use: None Drug Abuse: None Family History: CAD - Father, CVA - Mother Patient has suicidal ideation: No Patient has homicidal ideation: No - Past Medical History Cardiac Medical History: Reports: Hx Coronary Artery Disease, Hx Hypercholesterolemia, Hx Hypertension, Hx Peripheral Vascular Disease - Abdominal aortic aneurysm status post repair Denies: Hx Heart Attack Pulmonary Medical History: Reports: Hx Pneumonia Denies: Hx Asthma, Hx Bronchitis, Hx COPD Neurological Medical History: Denies: Hx Cerebrovascular Accident, Hx Seizures Endocrine Medical History: Reports: Hx Diabetes Mellitus Type 2 Renal/ Medical History: Reports: Hx Benign Prostatic Hyperplasia, Hx Renal Insufficiency. Denies: Hx Peritoneal Dialysis Malignancy Medical History: Reports Hx Prostate Cancer GI Medical History: Reports: Hx Colonoscopy. Denies: Hx Hepatitis, Hx Hiatal Hernia, Hx Ulcer Musculoskeletal Medical History: Reports Hx Arthritis - GENERALIZED Infectious Medical History: Denies: Hx Hepatitis Past Surgical History: Reports: Hx Kidney (Renal Surgery) - Right Nephrectomy, Hx Orthopedic Surgery - Back surgery Hip surgery Neck surgery, Hx Vascular Surgery - Endovascular sleeve for abdominal aortic aneurysm. Denies: Hx Open Heart Surgery, Hx Pacemaker - Immunizations Hx Diphtheria, Pertussis, Tetanus Vaccination: Yes Review of Systems - Review of Systems Constitutional: denies: Chills, Fever Cardiovascular: denies: Chest pain, Palpitations Respiratory: denies: Cough, Short of breath -: Yes All other systems reviewed and negative Physical Exam - Vital signs Vitals: Temp Pulse Resp BP Pulse Ox 97.9 F 81 22 H 115/59 L 93 04/09/19 06:52 04/09/19 06:52 04/09/19 06:52 04/09/19 06:52 04/09/19 06:52 Interpretation: Normal - General General appearance: Appears well, Alert - HEENT Head: Normocephalic, Atraumatic Eyes: Normal Pupils: PERRL Nasal: Bloody discharge, Epistaxis - Right sided - Respiratory Respiratory status: No respiratory distress Chest status: Nontender Breath sounds: Normal Chest palpation: Normal - Cardiovascular Rhythm: Regular Heart sounds: Normal auscultation Murmur: No - Abdominal Inspection: Normal Distension: No distension Bowel sounds: Normal Tenderness: Nontender Organomegaly: No organomegaly - Back Back: Normal, Nontender - Extremities General upper extremity: Normal inspection, Nontender, Normal color, Normal ROM, Normal temperature General lower extremity: Normal inspection, Nontender, Normal color, Normal ROM, Normal temperature, Normal weight bearing. No: Carmen's sign - Neurological Neuro grossly intact: Yes Cognition: Normal Orientation: AAOx4 Nicolasa Coma Scale Eye Opening: Spontaneous Nicolasa Coma Scale Verbal: Oriented Sebastian Coma Scale Motor: Obeys Commands Nicolasa Coma Scale Total: 15 Speech: Normal Motor strength normal: LUE, RUE, LLE, RLE Sensory: Normal - Psychological Associated symptoms: Normal affect, Normal mood - Skin Skin Temperature: Warm Skin Moisture: Dry Skin Color: Normal Course - Re-evaluation Re-evalutation: 04/09/19 08:31 Patient's nose was packed with Merocel. Bleeding is now stopped. I referred the patient to ear nose and throat. They state that they see Dr. Delacruz for this and they will make an appointment for this week. - Vital Signs Vital signs: Temp Pulse Resp BP Pulse Ox 97.9 F 81 22 H 115/59 L 93 04/09/19 06:52 04/09/19 06:52 04/09/19 06:52 04/09/19 06:52 04/09/19 06:52 Procedures - Nosebleed Procedure Right Time completed: 08:32 Location: Anterior Supplies used: Nasal tampon Notes: Bleeding stopped with Merocel. Discharge - Discharge Clinical Impression: Epistaxis, Epistaxis not due to trauma, Right-sided epistaxis Condition: Stable Disposition: HOME, SELF-CARE Instructions: Nosebleed Instructions (OM) Additional Instructions: Please call your ear nose and throat surgeon as soon as possible to arrange follow-up Prescriptions: Amoxicillin 1 tab PO TID 5 Days #15 tab Referrals: ARLENE CHAVEZ MD [Primary Care Provider] - Follow up as needed
[2019-04-09 09:07] VITALS: BP 151/73
== END 2019-04-09 09:07 | disposition home or self-care (01) ==
LOC: ER 06:46
DX: R04.0 Epistaxis (principal); I25.10 Atherosclerotic heart disease of native coronary artery without angina pectoris; I10 Essential (primary) hypertension; E11.51 Type 2 diabetes mellitus with diabetic peripheral angiopathy without gangrene; Z85.46 Personal history of malignant neoplasm of prostate; Z87.891 Personal history of nicotine dependence
CPT/HCPCS: 99283

== ENCOUNTER → 2019-04-10 | Outpatient (CLI) | payer MEDICARE, BC | LOC: OD 14:50 | PROVIDERS: ATTEND Internal Medicine Hematology & Oncology | DX: D69.6 Thrombocytopenia, unspecified (principal); D64.9 Anemia, unspecified; Z53.8 Procedure and treatment not carried out for other reasons ==

== ENCOUNTER 2019-04-12 08:54 | Emergency (ER) | payer MEDICARE, BC ==
--- NOTE | 2019-04-12 10:11 | ER Document Report ---
ED General - General Chief Complaint: Nose Bleed Stated Complaint: NOSE BLEED Time Seen by Provider: 04/12/19 10:10 Primary Care Provider: ARLENE CHAVEZ MD [Primary Care Provider] - Follow up as needed (Please keep your appointment with ENT Sunday, and please call Dr. Mayer's office on Sunday to follow-up with her. And please keep your appointment for your fistula following on April 15. If you have continued bleeding despite adequate compression for 15 minutes with Afrin spray then seek medical attention) Mode of Arrival: Ambulatory Information source: Patient - And spouse TRAVEL OUTSIDE OF THE [place] IN LAST 30 DAYS: No - HPI Notes: 74-year-old white male presents ambulatory with his to the ED for the third time in the last few days for a nosebleed. Per chart review patient has a history of basal cell carcinoma of the upper extremity which was complicated by some continued postop bleeding, there is mention of thrombocytopenia, he has a new referral to hematology upcoming, as well as a appointment with an ENT doctor in [place] this Sunday. On his most recent ED visit they before yesterday an area in the right anterior nasal mucosa was cauterized with silver nitrate and then hemostasis reportedly achieved with anterior packing. He was discharged with Afrin which has been trying to spray and he has been using the saline nasal spray. They said though last night epistaxis returned but could be stopped with holding pressure but prior to them coming to the ED despite holding 20 minutes of pressure could not achieve hemostasis and there is now some clotting and blood oozing in the oropharynx as well as seeping through the packing. They report packing has not seemed to have moved or been dislodged at all and no interval trauma I spoke with material spreader covering for patient's material spreader. They had felt he has a combined chronic anemia and low platelets most likely worsening and worsening secondary to continuing renal insufficiency. We discussed the fact that today he has had a drop of about a gram and his hemoglobin his platelets though are actually better than usual and now above 70. There is plan to start dialysis soon and have a fistula placed in the left upper extremity.Patient says he has had for a while some easy bleeding when he brushes his teeth for example no significant changes in that. He denies any new neuro deficits vision changes passing out near passing out falls or other trauma. No new petechiae or bruising different than usual he denies any blood in his stools or black stools. They have an ENT appointment at [facility] on Sunday and he has been taking the outpatient antibiotic for prophylaxis against invasive staph strep infections given his indwelling nasal packing. - Related Data Allergies/Adverse Reactions: No Known Allergies Allergy (Verified 04/12/19 09:09) Home Medications: finasteride. lyrica. HCTZ. tresiba. humalog. tylenol. losartan. iatanoprost Past Medical History - Social History Smoking Status: Never Smoker Chew tobacco use (# tins/day): No Frequency of alcohol use: None Drug Abuse: None Family History: CAD - Father, CVA - Mother Patient has suicidal ideation: No Patient has homicidal ideation: No - Past Medical History Cardiac Medical History: Reports: Hx Coronary Artery Disease, Hx Hypercholesterolemia, Hx Hypertension, Hx Peripheral Vascular Disease - Abdominal aortic aneurysm status post repair Denies: Hx Heart Attack Pulmonary Medical History: Reports: Hx Pneumonia Denies: Hx Asthma, Hx Bronchitis, Hx COPD Neurological Medical History: Denies: Hx Cerebrovascular Accident, Hx Seizures Endocrine Medical History: Reports: Hx Diabetes Mellitus Type 2 Renal/ Medical History: Reports: Hx Benign Prostatic Hyperplasia, Hx Renal Insufficiency. Denies: Hx Peritoneal Dialysis Malignancy Medical History: Reports Hx Prostate Cancer GI Medical History: Reports: Hx Colonoscopy. Denies: Hx Hepatitis, Hx Hiatal Hernia, Hx Ulcer Musculoskeletal Medical History: Reports Hx Arthritis - GENERALIZED Infectious Medical History: Denies: Hx Hepatitis Past Surgical History: Reports: Hx Kidney (Renal Surgery) - Right Nephrectomy, Hx Orthopedic Surgery - Back surgery Hip surgery Neck surgery, Hx Vascular Surgery - Endovascular sleeve for abdominal aortic aneurysm. Denies: Hx Open Heart Surgery, Hx Pacemaker - Immunizations Hx Diphtheria, Pertussis, Tetanus Vaccination: Yes Review of Systems - Review of Systems Constitutional: denies: Chills, Diaphoresis, Fever, Malaise, Weakness EENT: denies: Eye pain, Blurred vision, Double vision, Ear pain, Difficulty swallowing, Throat swelling, Mouth pain, Mouth swelling, Dental problem Cardiovascular: denies: Chest pain, Palpitations, Heart racing, Orthopnea, Dyspnea, Syncope, Lightheaded, Paroxysmal Nocturnal Dysp Respiratory: denies: Cough, Hurts to breathe, Hemoptysis, Short of breath, Sputum Gastrointestinal: denies: Abdomen distended, Abdominal pain, Diarrhea, Nausea, Vomiting, Poor appetite, Black stools, Rectal bleeding Genitourinary: denies: Frequency, Flank pain, Hematuria, Retention Musculoskeletal: No symptoms reported. denies: Joint swelling Skin: See HPI. denies: Change in color, Lesions, Rash Hematologic/Lymphatic: See HPI Neurological/Psychological: No symptoms reported Physical Exam - Vital signs Vitals: Temp Pulse Resp BP Pulse Ox 98 F 83 18 131/99 H 98 04/12/19 09:00 04/12/19 09:00 04/12/19 09:00 04/12/19 09:00 04/12/19 09:00 On arrival and throughout ED stay within normal limits until after his 1 unit transfusion blood pressure had increased some since has not had his nighttime meds. - Notes Notes: ___Gen:___Accompanied by Katja. VS wnl at time of triage and in my exam. Indwelling nasal packing on right with clot and some bright red blood oozing down face and can be seen very minimally in the posterior oropharynx. Otherwise NAD or inc WOB. +Alert, +interactive/cooperative. ___HEENT:___ NCAT. conjunctivae pale no sleral icterus. L Nares patent w/o epistaxis. On removal of saturated packing from right nare able to gently clear clots administer nebulized TXA and more Afrin and see medial very anterior area of oozing without any brisk arterial bleeding. Surrounding areas consistent with recent silver nitrate cauterization no septal perforation. Septum midline no hematoma. No stridor. No difficulty phonating or controlling secretions. Mouth/oropharynx musosa is otherwise pink/moist w/o deformity/edema/lesions. Base of uvula/posterior oropharynx visible, symmetric-appearing w/o mass effect/shift. ___Neck:___ No apparent difficulty FROM. No gross deformity, masses, or skin changes. No palpable masses or TMG or gross LAD in cervical/submental/post- auricular zones. ___Chest:___ No inc labor symmetric b/l chest rise w/ spontaneous respirations at rate WNL. On auscultation no gross WRR or focal findings. +symmetric full BS heard all post/lateral/ant lung turner. ___CV:___ All ext WWP, pulses symmetric RRR easily palpable and symmetric at distal UE/LE. No peripheral/truncal edema or color changes to suggest PVD. No JVD w/ HOB @ 45deg. Quiet precordium w/o heaves/lifts. On auscultation no gross MRG. ___MSK:___No gross joint or bony deformities. No overlying skin changes, swelling, or warmth. No apparent difficulty flexing at hip, knee, ankle, shoulder, elbow, wrists. ___Abd:___ Benign exam. No distention/color changes/obvious masses. BS present on auscultation. Nontender to light/deep palpation in all 4 quadrants, no palpable masses or OMG. ___GU:___ No suprapubic distention or ttp. Clear urine per specimen container. No gross ttp or palpable masses at CVA or inguinal regions b/l. ___Skin:___ intact, grossly healthy appearing for age. No obvious rashes, skin breakdown/wounds or color changes. ___Neuro:___ Alert interactive, calm cooperative, MADDEN w/ intention. Ambulatory. Speech, language, comprehension WNL during my interview. No gross CN deficits. Strength symmetric 5/5 in upper/lower major mm groups tested. Sensation to light touch grossly intact/symmetric distal UE/LE. Balance/gait, fine repetitive movements w/ both hands and feet grossly intact w/o dysmetr ia/ataxia/tremor x4 ext. ___Psych:___ Behavior, speech (content/rate) appropriate. Denies SI/HI upon direct questioning. +Well-kempt. +Good hygiene. Not disheveled. Not anxious or reserved-appearing. No apparent responses to int AVH/stimuli. Course - Re-evaluation Re-evalutation: 05/01/19 19:22 Removed 2-day-old packing which was saturated. Gently able to clear existing loose clot visualized medial, very anterior oozing site. Septum midline without hematoma or perforation. Hemoglobin had dropped a few grams from last check platelets were actually better than usual about 100. Other coag within normal limits. Spoke with material spreader covering for his primary material spreader and agreed should transfuse a unit PRBC. I did not want to cauterize any more area of the nasal mucosa given his known tendency to bleed patient and I discussed shared decision that it did seem to be the worsening renal function but that more acutely he had lost enough blood to require transfusion and that still in the emergency department today could repack him but we do not have ENT cushion mat maker and therefore he still would need to be seen Sunday in the office and they would assess at that time if cautery was the best option. Placed Rhino Rocket soaked in sterile water and then was able to place again in right nares filled balloon with about 30 cc of air and appeared to maintain pressure and patient tolerated. Transfusion did take a few hours his vital signs remained within normal limits and he did not have return of perceived epistaxis until right before patient was discharged and his son arrived started to have some epistaxis just as he had presented with. I discussed with son who is now present and taken over for patient's our options that we could transfer him since I discussed with the ENT divided but again they would just be seeing him in the ED and possibly cauterizing him there but really he could also just keep his appointment for Sunday at which time they could do the same assessment and intervention. Did appear at that time though that there had been some loss of air in the distal balloon suggesting overall packing was not holding enough pressure. The son it looks like had been trying to dab the clot off the end of the packing and then once it started oozing again was frequently dabbing his f ather's face to help. Therefore I showed them how to keep the balloon patent and also the correct way to apply pressure for 15 minutes at least without interruption. And we discussed avoiding any manipulation to dislodge packing or agitate bleeding. After we did these things bleeding was overall controlled but patient's blood pressure had increased over 200 systolic we gave him his nighttime dose of med he continued to not have any headache or chest pain or new shortness of breath son and patient and are preferring to manage this until the ENT appointment Sunday at home they understand that if they are unable to control any bleeding after adequate compression feel free to come to the emergency department and son will be with their dad and make sure he does not have any lightheadedness but in the ED is able to stand up with some assistance. They also understand it will be important to call his material spreader office first thing Sunday morning and just discuss the potential for bleeding risk with placement of the fistula that is being planned for early that week to prepare for that. - Vital Signs Vital signs: Temp Pulse Resp BP Pulse Ox 98.9 F 92 16 148/76 H 95 04/12/19 21:08 04/12/19 21:08 04/12/19 21:08 04/12/19 21:08 04/12/19 18:21 - Laboratory Result Diagrams: 04/12/19 11:12 Laboratory results interpreted by me: 04/12/19 04/12/19 04/12/19 11:12 11:12 11:12 RBC 2.46 L Hgb 7.8 L Hct 23.7 L RDW 16.8 H Plt Count 94 L Lymph % (Auto) 11.7 L PT 17.2 H APTT 41.9 H Crossmatch See Detail Procedures - Nosebleed Procedure Right Location: Anterior Supplies used: Rhinorocket Critical Care Note - Critical Care Note Total time excluding time spent on procedures (mins): 30 Discharge - Discharge Clinical Impression: Epistaxis not due to trauma, Right-sided epistaxis, Acute blood loss anemia, Epistaxis, Thrombocytopenia Anemia Qualifiers: Anemia type: due to chronic kidney disease Qualified Code(s): N18.5 - Chronic kidney disease, stage 5 Condition: Stable Disposition: HOME, SELF-CARE Additional Instructions: Please hold pressure on the wings of the nostrils and ensure the nasal packing stays in place for 15 minutes if there is oozing. Should be seen more immediately if you have more than half a cup of blood loss within an hour or less. Please call Dr. Mayer's office on Sunday to inform her of the last few days of continued anterior nosebleeds despite packing and cauterization in the ER. You can either be seen through an ED who would need to call in an ENT but in most situations with anterior bleeds they would see you in the office on the weekday to formally cauterize, though could possibly see you in the ER if it becomes unmanageable before Sunday appointment. Is using as expected and the first-line is to hold compression for 15 minutes though. Keep the other nostril moist to avoid bleeding that side. It is a good idea to also go ahead and touch base with the renal doctors and/or vascular doctors that are planning your fistula for 115 given your tendency to bleed right now as they might want to have a specific plan before that procedure. Referrals: ARLENE CHAVEZ MD [Primary Care Provider] - Follow up as needed (Please keep your appointment with ENT Sunday, and please call Dr. Mayer's office on Sunday to follow-up with her. And please keep your appointment for your fistula following on April 15. If you have continued bleeding despite adequate compression for 15 minutes with Afrin spray then seek medical attention)
[2019-04-12] MEDS ORDERED: TRANEXAMIC ACID INJ/PF 1,000 MG/10 ML SDV IV ONE (10:45)
[2019-04-12] MEDS ORDERED: LIDOCAINE 2% JELLY 5 ML TUBE TOP ONE (11:12)
[2019-04-12 11:46] LABS: INTERNATIONAL RATION (INR) 1.39; PROTHROMBIN TIME 17.2 SEC (11.4-15.4)
[2019-04-12 11:47] LABS: PARTIAL THROMBOPLASTIN TIME 41.9 SEC (23.5-35.8)
[2019-04-12 11:49] LABS: ABSOLUTE BASOPHILS # (AUTO) 0.1 10^3/uL (0.0-0.2); ABSOLUTE EOSINOPHILS # (AUTO) 0.2 10^3/uL (0.0-0.6); ABSOLUTE LYMPHOCYTES (AUTO) 0.7 10^3/uL (0.5-4.7); ABSOLUTE MONOCYTES (AUTO) 0.7 10^3/uL (0.1-1.4); ABSOLUTE NEUT (AUTO) 4.5 10^3/uL (1.7-8.2); BASOPHILS % (AUTO) 0.9 % (0-2); EOSINOPHILS % (AUTO) 3.9 % (0-6); HEMATOCRIT 23.7 % (37.9-51.0); LYMPHOCYTES % (AUTO) 11.7 % (13-45); MEAN CORPUSCULAR HEMOGLOBIN 31.6 pg (27.0-33.4); MEAN CORPUSCULAR HGB CONC 32.8 g/dL (32.0-36.0); MEAN CORPUSCULAR VOLUME 96 fl (80-97); MONOCYTES % (AUTO) 11.3 % (3-13); RED BLOOD COUNT 2.46 10^6/uL (4.35-5.55); RED CELL DISTRIBUTION WIDTH 16.8 % (11.5-14.0); SEGMENTED NEUTROPHILS % (AUTO) 72.2 % (42-78); TOTAL CELLS COUNTED % (AUTO) 100 %; WHITE BLOOD COUNT 6.2 10^3/uL (4.0-10.5)
[2019-04-12 11:56] LABS: HEMOGLOBIN 7.8 g/dL (13.5-17.0); PLATELET COUNT 94 10^3/uL (150-450)
[2019-04-12] MEDS ORDERED: NORMAL SALINE 250 ML IV PRN (12:25)
[2019-04-12 14:31] LABS: IRON(TIBC) 115.4 ug/dL (49-181)
[2019-04-12] MEDS ORDERED: LOSARTAN POTASSIUM 25 MG TABLET PO ONE (20:40)
[2019-04-12 21:14] VITALS: BP 148/76
== END 2019-04-12 21:39 | disposition home or self-care (01) ==
LOC: ER 08:54
DX: R04.0 Epistaxis (principal); D50.0 Iron deficiency anemia secondary to blood loss (chronic); D69.6 Thrombocytopenia, unspecified; I25.10 Atherosclerotic heart disease of native coronary artery without angina pectoris; E78.00 Pure hypercholesterolemia, unspecified; I12.0 Hypertensive chronic kidney disease with stage 5 chronic kidney disease or end stage renal disease; E11.22 Type 2 diabetes mellitus with diabetic chronic kidney disease; N18.5 Chronic kidney disease, stage 5; Z85.46 Personal history of malignant neoplasm of prostate
CPT/HCPCS: 99283; 86900; 86901; 36415; 36430; 86850; 82607; 82728; 82746; 83540; 83550; 85025; 85610; 85730; 86920; 30901; P9016; A9270; J3490

== ENCOUNTER → 2019-04-14 | Outpatient (CLI) | payer MEDICARE, BC ==
[2019-04-14 12:00] LABS: PFA EPI 140 (55-179)
[2019-04-14 12:03] LABS: PFA ADP 114 (56-106)
== END ==
LOC: OD 11:27
PROVIDERS: ATTEND Internal Medicine Hematology & Oncology
DX: D69.6 Thrombocytopenia, unspecified (principal); D64.9 Anemia, unspecified
CPT/HCPCS: 36415; 85576

== ENCOUNTER 2019-05-19 15:25 | Outpatient (CLI) | payer MEDICARE, BC ==
[2019-05-19 16:43] LABS: HEMATOCRIT 20.8 % (37.9-51.0); MEAN CORPUSCULAR HEMOGLOBIN 32.6 pg (27.0-33.4); MEAN CORPUSCULAR HGB CONC 32.9 g/dL (32.0-36.0); MEAN CORPUSCULAR VOLUME 99 fl (80-97); RED CELL DISTRIBUTION WIDTH 16.7 % (11.5-14.0); WHITE BLOOD COUNT 8.4 10^3/uL (4.0-10.5)
[2019-05-19 16:50] LABS: PLATELET COUNT 92 10^3/uL (150-450)
[2019-05-19 16:56] LABS: HEMOGLOBIN 6.8 g/dL (13.5-17.0)
[2019-05-20] MEDS ORDERED: DIPHENHYDRAMINE HCL 25 MG CAPSULE PO PRN (05:00)
[2019-05-20] MEDS ORDERED: ACETAMINOPHEN 325 MG TABLET PO PRN (05:00)
[2019-05-20] MEDS ORDERED: FUROSEMIDE INJ/PF 20 MG/2 ML SDV IV PRN (05:00)
[2019-05-20] MEDS ORDERED: NORMAL SALINE 250 ML IV PRN (09:00)
[2019-05-20 18:43] VITALS: BP 140/67
== END 2019-05-20 18:45 | disposition home or self-care (01) ==
LOC: II 15:25 → 2S 05-20 08:26 → II 05-20 08:26 → 2S 05-20 08:33 → II 05-20 18:45 → EDSTATUS 05-21 12:14
PROVIDERS: ATTEND Internal Medicine Hematology & Oncology
DX: D64.9 Anemia, unspecified (principal)
CPT/HCPCS: 86900; 86901; 36415; 36430; 86850; 86920; 96374; P9016; A9270 ×2; J1940

== ENCOUNTER → 2019-06-02 | Outpatient (CLI) | payer MEDICARE, BC ==
--- NOTE | 2019-06-02 16:11 | RADIOLOGY REPORT (SQ) ---
EXAM DESCRIPTION: VENOUS UNILATERAL LOWER COMPLETED DATE/TIME: 06/02/2019 3:57 pm REASON FOR STUDY: LLE PAIN/SWELLING M79.609 PAIN IN UNSPECIFIED LIMB M79.89 OTHER SPECIFIED SOFT T ISSUE DISORDERS COMPARISON: It is that 04/08/2019 TECHNIQUE: Dynamic and static vega scale and color images acquired of the left leg venous system. Se lected spectral images acquired with additional compression and augmentation maneuvers. The contralat eral common femoral vein and saphenofemoral junction were also imaged. Images stored on PACS. LIMITATIONS: None. FINDINGS: COMMON FEMORAL: Normal phasicity, compression and augmentation. No visualized echogenic ma terial on vega scale. No defects on color images. FEMORAL: Normal compression and augmentation. No visualized echogenic material on vega scale. No defe cts on color images. POPLITEAL: Normal compression, augmentation. No visualized echogenic material on vega scale. No defec ts on color images. CALF VESSELS: Normal compression, augmentation. No visualized echogenic material on vega scale. No de fects on color images. GSV and SSV: Normal compression, augmentation. No visualized echogenic material on vega scale. No def ects on color images. ANY DEEP VENOUS INSUFFICIENCY: Not evaluated. ANY EVIDENCE OF POPLITEAL CYST: No. OTHER: No other significant finding. CONTRALATERAL COMMON FEMORAL VEIN AND SAPHENOFEMORAL JUNCTION: Normal phasicity, compression and augmentation. No visualized echogenic material on vega scale. No de fects on color images. IMPRESSION: NO EVIDENCE DVT OR SVT IN THE LEFT LEG. TECHNICAL DOCUMENTATION: JOB ID: [id number] [employer]- All Rights Reserved Reading location - IP/workstation name: [email or web address]
== END ==
LOC: SP 13:24
PROVIDERS: ATTEND Physician Assistant Medical
DX: M79.662 Pain in left lower leg (principal); M79.89 Other specified soft tissue disorders
CPT/HCPCS: 93971